=== PATIENT | female | born 1950 | race Caucasian/White ===

== ENCOUNTER 2021-11-01 01:32 | Inpatient (IN) ==
[2021-11-01] MEDS ORDERED: ALUM/MAG/SIMETH/LIDO VISC 1:1 30 ML BOTTLE PO STA (01:48)
[2021-11-01] MEDS ORDERED: ONDANSETRON 4 MG/2 ML VIAL IV STA (01:48)
[2021-11-01] MEDS ORDERED: PANTOPRAZOLE 40 MG VIAL IV STA (01:48)
[2021-11-01 02:50] LABS: Basophils % 0.2 % (0.0-0.8); Hematocrit 29.3 VOL% (35.7-47.0); Hemoglobin 9.8 GM/DL (12.0-16.0); Immature Granulocytes % 1.4 %; Immature Granulocytes Absolute 0.08 #; Lymphocytes # 1.6 10*3/uL (1.4-4.0); Lymphocytes % 27.9 % (21.3-54.2); Mean Corpuscular HGB Conc 33.4 GM/DL (32-36); Mean Corpuscular Volume 95.1 FL (87-102); Mean Platelet Volume 11.1 FL (9.6-12.0); Monocytes % 4.1 % (1.7-12.7); NRBC # 0.02 10*3/uL; Neutrophils % 66.4 % (38.7-73.9); Platelet Count 168 T/CUMM (130-400); Red Blood Count 3.08 MC/CUMM (3.8-5.5); Red Cell Distribution Width 14.2 % (9.3-17.3); White Blood Count 5.7 T/CUMM (4-12)
[2021-11-01] MEDS ORDERED: LACTATED RINGERS 1,000 ML IV ONE (03:02)
[2021-11-01 03:10] LABS: Burr Cells 2+; Ovalocytes 1+; Platelet Estimate Normal
[2021-11-01 03:11] LABS: Albumin 2.5 G/DL (3.4-5.0); Bilirubin,Total 0.4 MG/DL (0.20-1.00); Calcium 8.8 MG/DL (8.5-10.1); Osmolality,Calculated 290.4 MOS/KG (273-304); Total Protein 6.3 G/DL (6.4-8.2)
[2021-11-01 03:21] LABS: Potassium 8.3 MMOL/L (3.5-5.1)
[2021-11-01] MEDS ORDERED: SODIUM CHLORIDE 0.9% 1,000 ML IV STA (03:22)
[2021-11-01] MEDS ORDERED: INSULIN REGULAR 10 UNIT, CALCIUM GLUCONATE 1,000 MG in DEXTROSE 10% 250 ML IV ONE (03:22)
[2021-11-01] MEDS ORDERED: SODIUM POLYSTYRENE SULFATE 15 GM/60 ML BOTTLE PO STA (03:28)
[2021-11-01] MEDS ORDERED: SODIUM BICARBONATE 50 MEQ/50 ML VIAL IV STA (03:28)
[2021-11-01 03:54] LABS: ABG Base Excess -16.5 MMOL/L (-2.5-2.5); ABG HCO3 12.3 MMOL/L (20-26); ABG PCO2 25.8 MM HG (35-48); ABG PH 7.213 (7.35-7.45); ABG PO2 72.6 MM HG (80-95); ABG TCO2 9.3 MMOL/L (23-27)
[2021-11-01 03:57] LABS: Bacteria,Urine Occasional /HPF (Few); Bilirubin,Urine Negative (Negative); Blood, Urine Large mg/dL (Negative); Glucose,Urine (UA) 50 mg/dL (Negative); Ketones,Urine Negative (Negative); Mucus,Urine Occasional /LPF (Occasional); Nitrite,Urine Negative (Negative); Protein,Urine 100 MG/DL; RBC,Urine 6 /HPF (0-4); Squamous Epithelial Cell,Urine Occasional /HPF (0-10); Urine Appearance CLOUDY (Clear); Urine Color Amber (Yellow); Urine Specific Gravity 1.019 (1.001-1.035); Urine Urobilinogen < 2.0 EU/DL (<2.0)
[2021-11-01] MEDS ORDERED: cefTRIAXone 1,000 MG in SODIUM CHLORIDE 0.9% 100 ML IV STA (04:04)
[2021-11-01] MEDS ORDERED: NOREPINEPHRINE 4 MG/4 ML VIAL IV ONE (04:11)
[2021-11-01] MEDS ORDERED: DEXTROSE 50% 25 GM/50 ML SYRINGE IV ONE (04:23)
[2021-11-01] MEDS ORDERED: SODIUM BICARBONATE 50 MEQ/50 ML SYRINGE IV ONE (04:25)
[2021-11-01] MEDS: NOREPINEPHRINE 8 MG in SODIUM CHLORIDE 0.9% 242 ML IV PRN ×3 (04:30→18:16)
[2021-11-01] MEDS ORDERED: ceFAZolin 1,000 MG VIAL ONE (04:34)
[2021-11-01] MEDS ORDERED: SODIUM POLYSTYRENE SULFATE 15 GM/60 ML BOTTLE RECTAL STA (04:36)
[2021-11-01] MEDS ORDERED: ONDANSETRON 4 MG/2 ML VIAL ONE (04:47)
[2021-11-01] MEDS ORDERED: propofoL 200 MG/20 ML VIAL IV ONE (04:47)
[2021-11-01] MEDS ORDERED: ROCURONIUM 50 MG/5 ML VIAL IV ONE ×2 (04:47→13:20)
[2021-11-01] MEDS ORDERED: SUCCINYLCHOLINE 200 MG/10 ML VIAL ONE (04:47)
[2021-11-01] MEDS ORDERED: LIDOCAINE 2% 5 ML VIAL ONE (04:47)
[2021-11-01] MEDS ORDERED: fentaNYL 100 MCG/2 ML VIAL ONE (04:47)
[2021-11-01] MEDS ORDERED: MIDAZOLAM 2 MG/2 ML VIAL ONE ×4 (04:48→13:18)
[2021-11-01] MEDS ORDERED: KETAMINE 500 MG/10 ML VIAL ONE ×2 (04:50→11:25)
[2021-11-01] MEDS ORDERED: cefOXitin 1,000 MG in SODIUM CHLORIDE 0.9% 100 ML IV STA (05:02)
[2021-11-01 05:11] LABS: Hepatitis B Core IgM Quant 0.19 Index; Hepatitis B Surface Ag Quant < 0.10 Index; Hepatitis B Surface Ag Result Non-Reactive (NonReactive); Hepatitis C Virus Ab Quant 0.04 Index; Hepatitis C Virus Ab Result Non-Reactive (NonReactive)
[2021-11-01] MEDS ORDERED: ETOMIDATE 20 MG/10 ML VIAL IV ONE (05:40)
[2021-11-01] MEDS ORDERED: VECURONIUM 10 MG VIAL IV ONE (05:40)
[2021-11-01] MEDS ORDERED: ALBUTEROL 2.5 MG/3 ML NEB RESP TX PRN (05:42)
[2021-11-01] MEDS ORDERED: ONDANSETRON 4 MG/2 ML VIAL IV PRN (05:42)
[2021-11-01] MEDS ORDERED: HEPARIN LOCK FLUSH 500 UNIT/5 ML SYRINGE IV ONE ×2 (05:42→05:47)
[2021-11-01] MEDS ORDERED: SODIUM BICARB INJ 100 MEQ in DEXTROSE 5% 1,000 ML IV SCH (06:00)
[2021-11-01 06:57] LABS: INR 1.2; PT Patient Result 12.8 SECS (10.5-12.0)
[2021-11-01 07:05] LABS: Calcium 8.1 MG/DL (8.5-10.1); Osmolality,Calculated 302.2 MOS/KG (273-304)
[2021-11-01 07:10] LABS: ABG Base Excess -16.8 MMOL/L (-2.5-2.5); ABG HCO3 7.5 MMOL/L (20-26); ABG Oxygen Saturation 98.7 % (95-100); ABG PH 7.295 (7.35-7.45); ABG PO2 268.8 MM HG (80-95); ABG TCO2 7.9 MMOL/L (23-27)
[2021-11-01 07:19] LABS: ABG PCO2 15.7 MM HG (35-48)
[2021-11-01 07:33] LABS: Potassium 6.7 MMOL/L (3.5-5.1)
[2021-11-01] MEDS ORDERED: DEXTROSE 10% 25 GM/250 ML BAG IV PRN (07:41)
[2021-11-01] MEDS ORDERED: GLUCAGON 1 MG VIAL IM PRN (07:41)
[2021-11-01] MEDS: SODIUM BICARB INJ 150 MEQ in DEXTROSE 5% 1,000 ML IV SCH ×3 (08:44→20:17)
[2021-11-01] MEDS ORDERED: ATROPINE 1 MG/10 ML SYRINGE ONE (09:47)
[2021-11-01] MEDS ORDERED: HEPARIN 10,000 UNIT/10 ML VIAL IV PRN (10:55)
[2021-11-01] MEDS ORDERED: fentaNYL 250 MCG/5 ML VIAL ONE (11:25)
[2021-11-01] MEDS ORDERED: GLYCOPYRROLATE 0.4 MG/2 ML VIAL ONE (11:25)
[2021-11-01] MEDS ORDERED: MIDAZOLAM 10 MG/2 ML VIAL ONE (11:26)
[2021-11-01] MEDS ORDERED: PHENYLEPHRINE DRIP 20 MG/250 ML PREMIX IV ONE (11:27)
[2021-11-01] MEDS ORDERED: HEPARIN/NACL 0.9% 2 UNITS/ML 1,000 UNIT/500 ML BAG IV ONE (11:37)
[2021-11-01 12:44] LABS: Osmolality,Calculated 290.5 MOS/KG (273-304); Potassium 4.5 MMOL/L (3.5-5.1)
[2021-11-01 13:11] LABS: ABG Base Excess -9.5 MMOL/L (-2.5-2.5); ABG HCO3 16.8 MMOL/L (20-26); ABG Oxygen Saturation 98.9 % (95-100); ABG PCO2 43.3 MM HG (35-48); ABG PH 7.223 (7.35-7.45); ABG TCO2 16.8 MMOL/L (23-27); Glucose Heart Surgery 256 MG/DL (74-106); Hematocrit Heart Surgery 27.8 PERCENT (37-47); Potassium Heart/CVR 4.2 MMOL/L (3.5-5.1)
[2021-11-01] MEDS ORDERED: SEVOFLURANE 1 UNIT/15 MINUTE INH ONE (13:18)
[2021-11-01] MEDS ORDERED: SODIUM CHLORIDE 0.9% 2,000 ML IV ONE (13:18)
[2021-11-01] MEDS ORDERED: SODIUM BICARBONATE 50 MEQ/50 ML VIAL IV ONE ×2 (13:44→13:47)
[2021-11-01] MEDS ORDERED: SODIUM CHLORIDE 0.9% 100 ML IV ONE (13:53)
[2021-11-01 13:59] LABS: ABG Base Excess -2.9 MMOL/L (-2.5-2.5); ABG Oxygen Saturation 99.7 % (95-100); ABG PCO2 29.7 MM HG (35-48); ABG PH 7.446 (7.35-7.45); ABG TCO2 19.1 MMOL/L (23-27)
[2021-11-01 14:03] LABS: Hematocrit 21.9 VOL% (35.7-47.0); Hemoglobin 7.7 GM/DL (12.0-16.0); Immature Granulocytes % 1.4 %; Immature Granulocytes Absolute 0.11 #; Lymphocytes # 1.9 10*3/uL (1.4-4.0); Lymphocytes % 23.6 % (21.3-54.2); Mean Corpuscular HGB Conc 35.2 GM/DL (32-36); Mean Corpuscular Volume 89.4 FL (87-102); Mean Platelet Volume 10.2 FL (9.6-12.0); Monocytes % 5.3 % (1.7-12.7); NRBC # 0.03 10*3/uL; Neutrophils % 69.7 % (38.7-73.9); Platelet Count 125 T/CUMM (130-400); Red Blood Count 2.45 MC/CUMM (3.8-5.5); Red Cell Distribution Width 13.8 % (9.3-17.3); White Blood Count 8.1 T/CUMM (4-12)
[2021-11-01] MEDS: PIPERACILLIN/TAZOBACTAM 3,375 MG in SODIUM CHLORIDE 0.9% 100 ML IV SCH ×2 (14:07→22:04)
[2021-11-01] MEDS: INSULIN LISPRO 100 UNIT/ML SUBCUT SCH ×2 (14:11→18:20)
[2021-11-01] MEDS: SODIUM CHLORIDE 0.9% 1,000 ML IV SCH ×2 (14:12→23:25)
[2021-11-01 14:24] LABS: Bilirubin,Total 0.4 MG/DL (0.20-1.00); Calcium 7.1 MG/DL (8.5-10.1); Osmolality,Calculated 301.5 MOS/KG (273-304); Potassium 4.1 MMOL/L (3.5-5.1); Total Protein 4.4 G/DL (6.4-8.2)
[2021-11-01] MEDS ORDERED: SODIUM BICARB INJ 150 MEQ in DEXTROSE 5% 1,000 ML IV SCH (14:30)
[2021-11-01] MEDS ORDERED: SODIUM CHLORIDE 0.9% 1,000 ML IV PRN (14:32)
[2021-11-01] MEDS ORDERED: INFLUENZA VIRUS VACCINE 0.5 ML SYRINGE IM ONE (17:51)
[2021-11-01 21:35] LABS: ABG Base Excess -5.6 MMOL/L (-2.5-2.5); ABG Oxygen Saturation 98.7 % (95-100); ABG PH 7.578 (7.35-7.45); ABG PO2 224.6 MM HG (80-95); ABG TCO2 14.4 MMOL/L (23-27)
[2021-11-01 21:37] LABS: ABG PCO2 15.3 MM HG (35-48)
[2021-11-01 23:08] LABS: ABG Base Excess -5.5 MMOL/L (-2.5-2.5); ABG HCO3 15.1 MMOL/L (20-26); ABG Oxygen Saturation 98.5 % (95-100); ABG PH 7.524 (7.35-7.45); ABG PO2 192.5 MM HG (80-95); ABG TCO2 15.7 MMOL/L (23-27)
[2021-11-01 23:10] LABS: ABG PCO2 18.8 MM HG (35-48)
[2021-11-01 23:45] LABS: Hematocrit 30.7 VOL% (35.7-47.0); Hemoglobin 10.9 GM/DL (12.0-16.0)
[2021-11-02] MEDS: INSULIN LISPRO 100 UNIT/ML SUBCUT SCH ×5 (00:10→23:45)
[2021-11-02 01:44] LABS: ABG Base Excess -4.3 MMOL/L (-2.5-2.5); ABG HCO3 17.6 MMOL/L (20-26); ABG Oxygen Saturation 98.2 % (95-100); ABG PH 7.484 (7.35-7.45); ABG PO2 146.7 MM HG (80-95); ABG TCO2 18.4 MMOL/L (23-27)
[2021-11-02] MEDS: NOREPINEPHRINE 8 MG in SODIUM CHLORIDE 0.9% 242 ML IV PRN ×4 (02:32→18:45)
[2021-11-02 04:40] LABS: ABG Base Excess -0.9 MMOL/L (-2.5-2.5); ABG HCO3 23.7 MMOL/L (20-26); ABG PCO2 29.5 MM HG (35-48); ABG PH 7.474 (7.35-7.45); ABG TCO2 19.1 MMOL/L (23-27)
[2021-11-02 04:50] LABS: Hematocrit 33.1 VOL% (35.7-47.0); Hemoglobin 11.5 GM/DL (12.0-16.0); Immature Granulocytes % 0.5 %; Immature Granulocytes Absolute 0.03 #; Lymphocytes # 0.9 10*3/uL (1.4-4.0); Lymphocytes % 13.5 % (21.3-54.2); Mean Corpuscular HGB Conc 34.7 GM/DL (32-36); Mean Corpuscular Volume 87.6 FL (87-102); Monocytes % 2.4 % (1.7-12.7); NRBC # 0.02 10*3/uL; Neutrophils % 83.6 % (38.7-73.9); Platelet Count 130 T/CUMM (130-400); Red Blood Count 3.78 MC/CUMM (3.8-5.5); Red Cell Distribution Width 14.3 % (9.3-17.3); White Blood Count 6.6 T/CUMM (4-12)
[2021-11-02 05:11] LABS: Band Neutrophils 3 % (0-10); Hypochromia Slight; Lymphocytes 10 % (20-55); Microcytosis Slight; Platelet Estimate Normal; Segmented Neutrophils 85 % (50-85); Total Cells Counted 100
[2021-11-02 05:14] LABS: Albumin 2.1 G/DL (3.4-5.0); Bilirubin,Total 0.5 MG/DL (0.20-1.00); Osmolality,Calculated 298.5 MOS/KG (273-304); Potassium 4.2 MMOL/L (3.5-5.1); Total Protein 4.8 G/DL (6.4-8.2)
[2021-11-02] MEDS: SODIUM CHLORIDE 0.9% 1,000 ML IV SCH ×3 (05:30→16:54)
[2021-11-02] MEDS: SODIUM BICARB INJ 150 MEQ in DEXTROSE 5% 1,000 ML IV SCH (05:43)
[2021-11-02] MEDS: PANTOPRAZOLE 40 MG VIAL IV SCH (08:06)
[2021-11-02] MEDS: PIPERACILLIN/TAZOBACTAM 3,375 MG in SODIUM CHLORIDE 0.9% 100 ML IV SCH ×2 (10:50→22:48)
[2021-11-02] MEDS: MORPHINE 2 MG/1 ML SYRINGE IV PRN (11:50)
[2021-11-02] MEDS: DESITIN 4OZ/NYSTATIN 15 GRAM MIXTURE PASTE TOP SCH ×2 (16:53→20:21)
[2021-11-03] MEDS: SODIUM CHLORIDE 0.9% 1,000 ML IV SCH ×4 (02:46→23:59)
[2021-11-03 04:21] LABS: ABG Base Excess -0.3 MMOL/L (-2.5-2.5); ABG HCO3 22.4 MMOL/L (20-26); ABG PCO2 30.2 MM HG (35-48); ABG PH 7.488 (7.35-7.45); ABG PO2 124.1 MM HG (80-95); ABG TCO2 23.3 MMOL/L (23-27)
[2021-11-03] MEDS: NOREPINEPHRINE 8 MG in SODIUM CHLORIDE 0.9% 242 ML IV PRN (04:39)
[2021-11-03 04:45] LABS: Albumin 1.6 G/DL (3.4-5.0); Bilirubin,Total 0.7 MG/DL (0.20-1.00); Calcium 7.4 MG/DL (8.5-10.1); Osmolality,Calculated 291.8 MOS/KG (273-304); Potassium 4.6 MMOL/L (3.5-5.1); Total Protein 4.5 G/DL (6.4-8.2)
[2021-11-03 04:47] LABS: Basophils % 0.1 % (0.0-0.8); Eosinophils % 0.2 % (0.00-10.9); Hematocrit 30.5 VOL% (35.7-47.0); Hemoglobin 10.5 GM/DL (12.0-16.0); Immature Granulocytes % 0.6 %; Immature Granulocytes Absolute 0.05 #; Lymphocytes # 1.3 10*3/uL (1.4-4.0); Lymphocytes % 15.3 % (21.3-54.2); Mean Corpuscular HGB Conc 34.4 GM/DL (32-36); Mean Corpuscular Volume 89.7 FL (87-102); Mean Platelet Volume 11.1 FL (9.6-12.0); Monocytes % 3.2 % (1.7-12.7); Neutrophils % 80.6 % (38.7-73.9); Red Cell Distribution Width 14.6 % (9.3-17.3); White Blood Count 8.3 T/CUMM (4-12)
[2021-11-03 04:53] LABS: Platelet Count 88 T/CUMM (130-400)
[2021-11-03 05:04] LABS: Hypochromia 1+; Microcytosis 1+; Platelet Estimate Decreased
[2021-11-03] MEDS: INSULIN LISPRO 100 UNIT/ML SUBCUT SCH ×4 (05:56→23:40)
[2021-11-03] MEDS: PIPERACILLIN/TAZOBACTAM 3,375 MG in SODIUM CHLORIDE 0.9% 100 ML IV SCH ×2 (09:17→22:14)
[2021-11-03] MEDS: PANTOPRAZOLE 40 MG VIAL IV SCH (09:17)
[2021-11-03 10:55] LABS: Basophils % 0.1 % (0.0-0.8); Eosinophils % 0.2 % (0.00-10.9); Hematocrit 27.7 VOL% (35.7-47.0); Hemoglobin 9.4 GM/DL (12.0-16.0); Immature Granulocytes % 0.7 %; Immature Granulocytes Absolute 0.06 #; Lymphocytes # 1.1 10*3/uL (1.4-4.0); Lymphocytes % 13.8 % (21.3-54.2); Mean Corpuscular HGB Conc 33.9 GM/DL (32-36); Mean Corpuscular Volume 91.1 FL (87-102); Mean Platelet Volume 10.6 FL (9.6-12.0); Monocytes % 3.2 % (1.7-12.7); Platelet Count 73 T/CUMM (130-400); Red Blood Count 3.04 MC/CUMM (3.8-5.5); Red Cell Distribution Width 14.7 % (9.3-17.3); White Blood Count 8.1 T/CUMM (4-12)
[2021-11-03] MEDS ORDERED: MAGNESIUM SULF RIDER 4 GM/100 ML PREMIX IV ONE ×2 (10:58→11:00)
[2021-11-03] MEDS ORDERED: DOPamine 800 MG/250 ML PREMIX IV PRN (11:17)
[2021-11-03] MEDS: DOPamine 800 MG/250 ML PREMIX IV PRN (11:29)
[2021-11-03] MEDS: DESITIN 4OZ/NYSTATIN 15 GRAM MIXTURE PASTE TOP SCH ×2 (14:03→21:10)
[2021-11-03] MEDS: DEXAMETHASONE 4 MG/1 ML VIAL IV SCH (17:17)
[2021-11-03] MEDS: MORPHINE 2 MG/1 ML SYRINGE IV PRN (21:20)
[2021-11-04 03:59] LABS: ABG Base Excess -1.8 MMOL/L (-2.5-2.5); ABG HCO3 22.8 MMOL/L (20-26); ABG Oxygen Saturation 96.3 % (95-100); ABG PCO2 31.7 MM HG (35-48); ABG PH 7.439 (7.35-7.45); ABG PO2 80.8 MM HG (80-95); ABG TCO2 19.2 MMOL/L (23-27)
[2021-11-04 04:11] LABS: Hemoglobin 10.8 GM/DL (12.0-16.0); Immature Granulocytes % 0.8 %; Immature Granulocytes Absolute 0.07 #; Lymphocytes # 0.8 10*3/uL (1.4-4.0); Lymphocytes % 9.2 % (21.3-54.2); Mean Corpuscular HGB Conc 33.8 GM/DL (32-36); Mean Corpuscular Volume 91.2 FL (87-102); Mean Platelet Volume 11.3 FL (9.6-12.0); Monocytes % 1.8 % (1.7-12.7); Neutrophils % 88.2 % (38.7-73.9); Platelet Count 72 T/CUMM (130-400); Red Blood Count 3.51 MC/CUMM (3.8-5.5); Red Cell Distribution Width 14.6 % (9.3-17.3); White Blood Count 8.5 T/CUMM (4-12)
[2021-11-04 04:32] LABS: Albumin 1.6 G/DL (3.4-5.0); Bilirubin,Total 0.8 MG/DL (0.20-1.00); Calcium 7.9 MG/DL (8.5-10.1); Osmolality,Calculated 295.1 MOS/KG (273-304); Potassium 4.7 MMOL/L (3.5-5.1)
[2021-11-04 04:47] LABS: Hypochromia 1+; Microcytosis 1+; Ovalocytes Slight; Platelet Estimate Decreased
[2021-11-04] MEDS: DOPamine 800 MG/250 ML PREMIX IV PRN (04:54)
[2021-11-04] MEDS: INSULIN LISPRO 100 UNIT/ML SUBCUT SCH ×3 (05:18→19:01)
[2021-11-04] MEDS: DEXAMETHASONE 4 MG/1 ML VIAL IV SCH (08:41)
[2021-11-04] MEDS: PANTOPRAZOLE 40 MG VIAL IV SCH (08:41)
[2021-11-04] MEDS: PIPERACILLIN/TAZOBACTAM 3,375 MG in SODIUM CHLORIDE 0.9% 100 ML IV SCH ×2 (09:08→21:09)
[2021-11-04] MEDS: DESITIN 4OZ/NYSTATIN 15 GRAM MIXTURE PASTE TOP SCH ×2 (09:46→20:04)
[2021-11-04] MEDS: SODIUM CHLORIDE 0.9% 1,000 ML IV SCH (18:17)
[2021-11-04] MEDS: GABAPENTIN 100 MG CAPSULE PO SCH (20:04)
[2021-11-04] MEDS: ASCORBIC ACID 500 MG TABLET PO SCH (20:04)
[2021-11-04] MEDS: MORPHINE 2 MG/1 ML SYRINGE IV PRN (20:10)
[2021-11-05] MEDS: INSULIN LISPRO 100 UNIT/ML SUBCUT SCH ×5 (00:12→23:40)
[2021-11-05 03:32] LABS: ABG Base Excess -3.1 MMOL/L (-2.5-2.5); ABG HCO3 21.8 MMOL/L (20-26); ABG Oxygen Saturation 96.1 % (95-100); ABG PCO2 34.6 MM HG (35-48); ABG PH 7.395 (7.35-7.45); ABG PO2 84.4 MM HG (80-95); ABG TCO2 19.3 MMOL/L (23-27)
[2021-11-05 03:33] LABS: Hematocrit 29.3 VOL% (35.7-47.0); Hemoglobin 9.7 GM/DL (12.0-16.0); Immature Granulocytes % 0.8 %; Immature Granulocytes Absolute 0.09 #; Lymphocytes # 0.8 10*3/uL (1.4-4.0); Lymphocytes % 7.8 % (21.3-54.2); Mean Corpuscular HGB Conc 33.1 GM/DL (32-36); Mean Platelet Volume 10.9 FL (9.6-12.0); Neutrophils % 88.4 % (38.7-73.9); Platelet Count 86 T/CUMM (130-400); Red Blood Count 3.15 MC/CUMM (3.8-5.5); Red Cell Distribution Width 14.7 % (9.3-17.3); White Blood Count 10.8 T/CUMM (4-12)
[2021-11-05 03:57] LABS: Alanine Aminotransferase 152 U/L (13-56); Albumin 1.1 G/DL (3.4-5.0); Alkaline Phosphatase 95 U/L (45-117); Aspartate Amino Transferase 259 U/L (0-37); Bilirubin,Total < 0.39 MG/DL (0.20-1.00); Blood Urea Nitrogen 69 MG/DL (7-18); Calcium 8.3 MG/DL (8.5-10.1); Carbon Dioxide 22 MMOL/L (21-32); Estimated Glom Filtration Rate 7 ML/MIN; Glucose 200 MG/DL (74-106); Osmolality,Calculated 304.4 MOS/KG (273-304); Potassium 4.5 MMOL/L (3.5-5.1); Sodium 140 MMOL/L (136-145); Total Protein 4.7 G/DL (6.4-8.2)
[2021-11-05] MEDS: MORPHINE 2 MG/1 ML SYRINGE IV PRN ×2 (04:00→12:32)
[2021-11-05 04:06] LABS: Hypochromia 1+; Microcytosis 1+; Ovalocytes Slight
[2021-11-05 04:07] LABS: Platelet Estimate Decreased; Tear Drop Cells Slight
[2021-11-05] MEDS: SODIUM CHLORIDE 0.9% 1,000 ML IV SCH (04:52)
[2021-11-05] MEDS: ZINC GLUCONATE 50 MG TABLET PO SCH (08:00)
[2021-11-05] MEDS: ASPIRIN EC 81 MG TABLET PO SCH (08:00)
[2021-11-05] MEDS: CHOLECALCIFEROL 1,000 UNIT TABLET PO SCH (08:00)
[2021-11-05] MEDS: ASCORBIC ACID 500 MG TABLET PO SCH ×2 (08:00→20:25)
[2021-11-05] MEDS: PANTOPRAZOLE 40 MG VIAL IV SCH (08:01)
[2021-11-05] MEDS: DESITIN 4OZ/NYSTATIN 15 GRAM MIXTURE PASTE TOP SCH ×2 (08:01→21:21)
[2021-11-05] MEDS: CETIRIZINE 10 MG TABLET PO SCH (08:01)
[2021-11-05] MEDS: DEXAMETHASONE 4 MG/1 ML VIAL IV SCH (08:01)
[2021-11-05 08:50] LABS: Allen Test Positive; Pt O2 Delivery Device Ventilator
[2021-11-05 08:51] LABS: ABG Base Excess -3.3 MMOL/L (-2.5-2.5); ABG HCO3 21.6 MMOL/L (20-26); ABG PCO2 36.8 MM HG (35-48); ABG PH 7.373 (7.35-7.45); ABG PO2 79.4 MM HG (80-95); ABG TCO2 19.4 MMOL/L (23-27)
[2021-11-05] MEDS: PIPERACILLIN/TAZOBACTAM 3,375 MG in SODIUM CHLORIDE 0.9% 100 ML IV SCH ×2 (10:30→22:01)
[2021-11-05] MEDS ORDERED: HEPARIN 5,000 UNIT/1 ML VIAL IV ONE (12:18)
[2021-11-05] MEDS ORDERED: HEPARIN DRIP 25,000 UNITS/500 ML PREMIX IV SCH (12:30)
[2021-11-05 13:48] LABS: Basophils % 0.1 % (0.0-0.8); Hematocrit 28.4 VOL% (35.7-47.0); Hemoglobin 9.5 GM/DL (12.0-16.0); Immature Granulocytes % 0.9 %; Lymphocytes # 0.7 10*3/uL (1.4-4.0); Lymphocytes % 6.4 % (21.3-54.2); Mean Corpuscular HGB Conc 33.5 GM/DL (32-36); Mean Corpuscular Volume 93.1 FL (87-102); Mean Platelet Volume 11.2 FL (9.6-12.0); Monocytes % 2.6 % (1.7-12.7); Platelet Count 81 T/CUMM (130-400); Red Blood Count 3.05 MC/CUMM (3.8-5.5); Red Cell Distribution Width 14.7 % (9.3-17.3); White Blood Count 11.3 T/CUMM (4-12)
[2021-11-05 14:14] LABS: Platelet Estimate Adequate; Segmented Neutrophils 96 % (50-85); Total Cells Counted 100
[2021-11-05 14:15] LABS: Burr Cells Few; Ovalocytes Few; Polychromasia Slight; Schistocytes Few
[2021-11-05 18:18] LABS: Basophils % 0.1 % (0.0-0.8); Hematocrit 32.9 VOL% (35.7-47.0); Hemoglobin 11.2 GM/DL (12.0-16.0); Immature Granulocytes % 0.8 %; Immature Granulocytes Absolute 0.16 #; Lymphocytes # 1.1 10*3/uL (1.4-4.0); Mean Corpuscular Volume 89.6 FL (87-102); Mean Platelet Volume 10.9 FL (9.6-12.0); Monocytes % 3.2 % (1.7-12.7); Neutrophils % 89.9 % (38.7-73.9); Platelet Count 103 T/CUMM (130-400); Red Blood Count 3.67 MC/CUMM (3.8-5.5); Red Cell Distribution Width 14.6 % (9.3-17.3)
[2021-11-05 19:24] LABS: Burr Cells Few; Platelet Estimate Adequate; Polychromasia Slight; Target Cells Few
[2021-11-05] MEDS: GABAPENTIN 100 MG CAPSULE PO SCH (20:24)
[2021-11-06 01:02] LABS: Basophils % 0.1 % (0.0-0.8); Hematocrit 29.9 VOL% (35.7-47.0); Hemoglobin 10.2 GM/DL (12.0-16.0); Immature Granulocytes % 1.2 %; Immature Granulocytes Absolute 0.17 #; Lymphocytes # 0.6 10*3/uL (1.4-4.0); Lymphocytes % 4.6 % (21.3-54.2); Mean Corpuscular HGB Conc 34.1 GM/DL (32-36); Mean Corpuscular Volume 91.4 FL (87-102); Mean Platelet Volume 10.7 FL (9.6-12.0); Monocytes % 3.4 % (1.7-12.7); Neutrophils % 90.7 % (38.7-73.9); Platelet Count 98 T/CUMM (130-400); Red Blood Count 3.27 MC/CUMM (3.8-5.5); Red Cell Distribution Width 14.5 % (9.3-17.3)
[2021-11-06 01:23] LABS: Lymphocytes 7 % (20-55); Platelet Estimate Decreased; Segmented Neutrophils 90 % (50-85); Total Cells Counted 100
[2021-11-06 04:21] LABS: Basophils % 0.1 % (0.0-0.8); Hematocrit 29.4 VOL% (35.7-47.0); Hemoglobin 9.8 GM/DL (12.0-16.0); Immature Granulocytes % 0.6 %; Immature Granulocytes Absolute 0.08 #; Lymphocytes # 0.8 10*3/uL (1.4-4.0); Mean Corpuscular HGB Conc 33.3 GM/DL (32-36); Mean Platelet Volume 11.3 FL (9.6-12.0); Monocytes % 4.1 % (1.7-12.7); Neutrophils % 89.2 % (38.7-73.9); Platelet Count 89 T/CUMM (130-400); Red Blood Count 3.23 MC/CUMM (3.8-5.5); Red Cell Distribution Width 14.3 % (9.3-17.3); White Blood Count 13.6 T/CUMM (4-12)
[2021-11-06 05:05] LABS: Albumin 1.4 G/DL (3.4-5.0); Bilirubin,Total 0.5 MG/DL (0.20-1.00); Osmolality,Calculated 296.4 MOS/KG (273-304); Potassium 4.1 MMOL/L (3.5-5.1); Total Protein 4.7 G/DL (6.4-8.2)
[2021-11-06] MEDS: INSULIN LISPRO 100 UNIT/ML SUBCUT SCH ×4 (05:55→23:55)
[2021-11-06] MEDS: DOPamine 800 MG/250 ML PREMIX IV PRN ×2 (06:56→19:12)
[2021-11-06] MEDS ORDERED: SODIUM CHLORIDE 0.9% 500 ML IV ONE (08:25)
[2021-11-06] MEDS: ASPIRIN EC 81 MG TABLET PO SCH (09:00)
[2021-11-06] MEDS: ASCORBIC ACID 500 MG TABLET PO SCH ×2 (09:00→20:04)
[2021-11-06] MEDS: ZINC GLUCONATE 50 MG TABLET PO SCH (09:00)
[2021-11-06] MEDS: CHOLECALCIFEROL 1,000 UNIT TABLET PO SCH (09:00)
[2021-11-06] MEDS: CETIRIZINE 10 MG TABLET PO SCH (09:00)
[2021-11-06] MEDS: DEXAMETHASONE 4 MG/1 ML VIAL IV SCH (09:01)
[2021-11-06] MEDS: PANTOPRAZOLE 40 MG VIAL IV SCH (09:02)
[2021-11-06 09:28] LABS: ABG Base Excess -0.9 MMOL/L (-2.5-2.5); ABG HCO3 23.6 MMOL/L (20-26); ABG Oxygen Saturation 93.4 % (95-100); ABG PCO2 35.6 MM HG (35-48); ABG PH 7.422 (7.35-7.45); ABG PO2 69.4 MM HG (80-95); ABG TCO2 21.3 MMOL/L (23-27)
[2021-11-06] MEDS: PIPERACILLIN/TAZOBACTAM 3,375 MG in SODIUM CHLORIDE 0.9% 100 ML IV SCH (10:20)
[2021-11-06 12:29] LABS: Basophils % 0.1 % (0.0-0.8); Hematocrit 27.8 VOL% (35.7-47.0); Hemoglobin 9.1 GM/DL (12.0-16.0); Immature Granulocytes % 0.9 %; Immature Granulocytes Absolute 0.14 #; Lymphocytes % 6.1 % (21.3-54.2); Mean Corpuscular HGB Conc 32.7 GM/DL (32-36); Mean Corpuscular Volume 94.2 FL (87-102); Mean Platelet Volume 11.3 FL (9.6-12.0); Monocytes % 3.1 % (1.7-12.7); Neutrophils % 89.8 % (38.7-73.9); Platelet Count 102 T/CUMM (130-400); Red Blood Count 2.95 MC/CUMM (3.8-5.5); Red Cell Distribution Width 14.6 % (9.3-17.3); White Blood Count 15.9 T/CUMM (4-12)
[2021-11-06] MEDS: DESITIN 4OZ/NYSTATIN 15 GRAM MIXTURE PASTE TOP SCH ×2 (12:37→20:06)
[2021-11-06] MEDS: SODIUM CHLORIDE 0.9% 1,000 ML IV SCH (12:37)
[2021-11-06 12:50] LABS: INR 1.1; PT Patient Result 12.2 SECS (10.5-12.0)
[2021-11-06 12:55] LABS: Partial Thromboplastin Time 26.5 SECS (23.8-32.1)
[2021-11-06 13:01] LABS: Anisocytosis 1+; Ovalocytes Few; Platelet Estimate Adequate
[2021-11-06 13:03] LABS: Macrocytosis Slight
[2021-11-06 18:26] LABS: Basophils % 0.1 % (0.0-0.8); Hematocrit 27.9 VOL% (35.7-47.0); Hemoglobin 9.3 GM/DL (12.0-16.0); Immature Granulocytes % 0.9 %; Immature Granulocytes Absolute 0.16 #; Lymphocytes # 1.1 10*3/uL (1.4-4.0); Mean Corpuscular HGB Conc 33.3 GM/DL (32-36); Mean Corpuscular Volume 93.3 FL (87-102); Mean Platelet Volume 11.5 FL (9.6-12.0); Monocytes % 2.9 % (1.7-12.7); NRBC # 0.06 10*3/uL; Neutrophils % 90.1 % (38.7-73.9); Platelet Count 105 T/CUMM (130-400); Red Blood Count 2.99 MC/CUMM (3.8-5.5); Red Cell Distribution Width 14.6 % (9.3-17.3)
[2021-11-06 18:33] LABS: ABG Base Excess -3.7 MMOL/L (-2.5-2.5); ABG Oxygen Saturation 95.5 % (95-100); ABG PCO2 31.3 MM HG (35-48); ABG PH 7.424 (7.35-7.45); ABG PO2 88.2 MM HG (80-95)
[2021-11-06] MEDS: GABAPENTIN 100 MG CAPSULE PO SCH (20:04)
[2021-11-07] MEDS: DOPamine 800 MG/250 ML PREMIX IV PRN (05:00)
[2021-11-07] MEDS: INSULIN LISPRO 100 UNIT/ML SUBCUT SCH ×3 (05:47→19:11)
[2021-11-07 07:30] LABS: Basophils % 0.1 % (0.0-0.8); Hematocrit 25.8 VOL% (35.7-47.0); Hemoglobin 8.5 GM/DL (12.0-16.0); Immature Granulocytes % 0.9 %; Immature Granulocytes Absolute 0.16 #; Lymphocytes # 1.4 10*3/uL (1.4-4.0); Lymphocytes % 8.2 % (21.3-54.2); Mean Corpuscular HGB Conc 32.9 GM/DL (32-36); Mean Corpuscular Volume 93.1 FL (87-102); Mean Platelet Volume 11.6 FL (9.6-12.0); Monocytes % 4.9 % (1.7-12.7); NRBC # 0.07 10*3/uL; Neutrophils % 85.9 % (38.7-73.9); Platelet Count 105 T/CUMM (130-400); Red Blood Count 2.77 MC/CUMM (3.8-5.5); Red Cell Distribution Width 14.6 % (9.3-17.3); White Blood Count 17.4 T/CUMM (4-12)
[2021-11-07 07:39] LABS: Albumin 1.7 G/DL (3.4-5.0); Bilirubin,Total 0.5 MG/DL (0.20-1.00); Calcium 8.4 MG/DL (8.5-10.1); Potassium 4.9 MMOL/L (3.5-5.1); Total Protein 5.3 G/DL (6.4-8.2)
[2021-11-07 08:13] LABS: ABG Base Excess -3.6 MMOL/L (-2.5-2.5); ABG HCO3 20.2 MMOL/L (20-26); ABG PCO2 31.7 MM HG (35-48); ABG PH 7.422 (7.35-7.45); ABG PO2 69.6 MM HG (80-95); ABG TCO2 21.2 MMOL/L (23-27)
[2021-11-07 08:57] LABS: Anisocytosis 1+; Platelet Estimate Adequate
[2021-11-07 08:58] LABS: Burr Cells Few; Ovalocytes Few; Tear Drop Cells Few
[2021-11-07] MEDS: ASCORBIC ACID 500 MG TABLET PO SCH ×2 (09:20→20:06)
[2021-11-07] MEDS: CHOLECALCIFEROL 1,000 UNIT TABLET PO SCH (09:20)
[2021-11-07] MEDS: CETIRIZINE 10 MG TABLET PO SCH (09:21)
[2021-11-07] MEDS: DESITIN 4OZ/NYSTATIN 15 GRAM MIXTURE PASTE TOP SCH ×2 (09:21→20:07)
[2021-11-07] MEDS: ASPIRIN EC 81 MG TABLET PO SCH (09:21)
[2021-11-07] MEDS: ZINC GLUCONATE 50 MG TABLET PO SCH (09:21)
[2021-11-07] MEDS: PANTOPRAZOLE 40 MG VIAL IV SCH (09:21)
[2021-11-07] MEDS: DEXAMETHASONE 4 MG/1 ML VIAL IV SCH (09:21)
[2021-11-07 20:33] LABS: Basophils % 0.1 % (0.0-0.8); Hematocrit 21.9 VOL% (35.7-47.0); Hemoglobin 7.3 GM/DL (12.0-16.0); Immature Granulocytes % 1.1 %; Immature Granulocytes Absolute 0.19 #; Lymphocytes # 1.2 10*3/uL (1.4-4.0); Lymphocytes % 7.1 % (21.3-54.2); Mean Corpuscular HGB Conc 33.3 GM/DL (32-36); Mean Corpuscular Volume 92.4 FL (87-102); Mean Platelet Volume 11.6 FL (9.6-12.0); Monocytes % 3.5 % (1.7-12.7); NRBC # 0.03 10*3/uL; Neutrophils % 88.2 % (38.7-73.9); Platelet Count 108 T/CUMM (130-400); Red Blood Count 2.37 MC/CUMM (3.8-5.5); Red Cell Distribution Width 14.7 % (9.3-17.3); White Blood Count 17.2 T/CUMM (4-12)
[2021-11-08] MEDS: INSULIN LISPRO 100 UNIT/ML SUBCUT SCH ×5 (00:11→23:10)
[2021-11-08 05:55] LABS: ABG Base Excess -5.7 MMOL/L (-2.5-2.5); ABG Oxygen Saturation 93.8 % (95-100); ABG PCO2 33.7 MM HG (35-48); ABG PH 7.369 (7.35-7.45); ABG PO2 76.5 MM HG (80-95)
[2021-11-08 06:04] LABS: Basophils % 0.1 % (0.0-0.8); Hematocrit 20.9 VOL% (35.7-47.0); Hemoglobin 7.1 GM/DL (12.0-16.0); Immature Granulocytes % 1.4 %; Immature Granulocytes Absolute 0.29 #; Lymphocytes # 1.3 10*3/uL (1.4-4.0); Lymphocytes % 6.5 % (21.3-54.2); Mean Corpuscular Volume 92.5 FL (87-102); Mean Platelet Volume 11.4 FL (9.6-12.0); Monocytes % 5.3 % (1.7-12.7); NRBC # 0.03 10*3/uL; Neutrophils % 86.7 % (38.7-73.9); Platelet Count 115 T/CUMM (130-400); Red Blood Count 2.26 MC/CUMM (3.8-5.5); Red Cell Distribution Width 14.6 % (9.3-17.3); White Blood Count 20.5 T/CUMM (4-12)
[2021-11-08 06:29] LABS: Lymphocytes 6 % (20-55); Segmented Neutrophils 89 % (50-85); Total Cells Counted 100
[2021-11-08 06:30] LABS: Microcytosis 1+; Ovalocytes Slight
[2021-11-08 06:31] LABS: Hypochromia Slight; Platelet Estimate Adequate
[2021-11-08 06:36] LABS: Albumin 1.6 G/DL (3.4-5.0); Bilirubin,Total 0.4 MG/DL (0.20-1.00); Calcium 8.4 MG/DL (8.5-10.1); Potassium 4.9 MMOL/L (3.5-5.1); Total Protein 4.9 G/DL (6.4-8.2)
[2021-11-08] MEDS ORDERED: SODIUM CHLORIDE 0.9% 1,000 ML IV PRN ×2 (08:28→09:32)
[2021-11-08] MEDS: ZINC GLUCONATE 50 MG TABLET PO SCH (09:25)
[2021-11-08] MEDS: ASCORBIC ACID 500 MG TABLET PO SCH ×2 (09:25→20:11)
[2021-11-08] MEDS: ASPIRIN EC 81 MG TABLET PO SCH (09:25)
[2021-11-08] MEDS: DEXAMETHASONE 4 MG/1 ML VIAL IV SCH (09:26)
[2021-11-08] MEDS: CETIRIZINE 10 MG TABLET PO SCH (09:26)
[2021-11-08] MEDS: PANTOPRAZOLE 40 MG VIAL IV SCH (09:26)
[2021-11-08] MEDS: CHOLECALCIFEROL 1,000 UNIT TABLET PO SCH (09:26)
[2021-11-08] MEDS: DESITIN 4OZ/NYSTATIN 15 GRAM MIXTURE PASTE TOP SCH ×2 (09:42→20:11)
[2021-11-08] MEDS: DOPamine 800 MG/250 ML PREMIX IV PRN (13:25)
[2021-11-08] MEDS: MORPHINE 2 MG/1 ML SYRINGE IV PRN ×2 (16:39→20:27)
[2021-11-09] MEDS: DOPamine 800 MG/250 ML PREMIX IV PRN ×2 (01:45→11:46)
[2021-11-09] MEDS: MORPHINE 2 MG/1 ML SYRINGE IV PRN (03:35)
[2021-11-09 04:18] LABS: ABG Base Excess -2.9 MMOL/L (-2.5-2.5); ABG HCO3 21.9 MMOL/L (20-26); ABG Oxygen Saturation 88.8 % (95-100); ABG PCO2 35.4 MM HG (35-48); ABG PH 7.392 (7.35-7.45); ABG PO2 59.5 MM HG (80-95)
[2021-11-09 04:19] LABS: Allen Test Positive; Pt O2 Delivery Device Other
[2021-11-09 04:40] LABS: Basophils % 0.1 % (0.0-0.8); Hemoglobin 8.5 GM/DL (12.0-16.0); Immature Granulocytes % 1.8 %; Immature Granulocytes Absolute 0.38 #; Lymphocytes # 1.3 10*3/uL (1.4-4.0); Lymphocytes % 6.1 % (21.3-54.2); Mean Corpuscular HGB Conc 32.7 GM/DL (32-36); Mean Corpuscular Volume 93.2 FL (87-102); Mean Platelet Volume 12.3 FL (9.6-12.0); Monocytes % 6.2 % (1.7-12.7); NRBC # 0.05 10*3/uL; Neutrophils % 85.8 % (38.7-73.9); Platelet Count 141 T/CUMM (130-400); Red Blood Count 2.79 MC/CUMM (3.8-5.5); White Blood Count 21.1 T/CUMM (4-12)
[2021-11-09 05:05] LABS: Hypochromia 1+; Lymphocytes 10 % (20-55); Microcytosis 1+; Platelet Estimate Adequate; Segmented Neutrophils 86 % (50-85); Total Cells Counted 100
[2021-11-09] MEDS: INSULIN LISPRO 100 UNIT/ML SUBCUT SCH ×3 (05:15→17:30)
[2021-11-09 05:22] LABS: Albumin 1.6 G/DL (3.4-5.0); Bilirubin,Total 0.9 MG/DL (0.20-1.00); Potassium 4.8 MMOL/L (3.5-5.1); Total Protein 4.8 G/DL (6.4-8.2)
[2021-11-09] MEDS: ASCORBIC ACID 500 MG TABLET PO SCH ×2 (09:05→20:26)
[2021-11-09] MEDS: ZINC GLUCONATE 50 MG TABLET PO SCH (09:05)
[2021-11-09] MEDS: CETIRIZINE 10 MG TABLET PO SCH (09:05)
[2021-11-09] MEDS: PANTOPRAZOLE 40 MG VIAL IV SCH (09:05)
[2021-11-09] MEDS: ASPIRIN EC 81 MG TABLET PO SCH (09:05)
[2021-11-09] MEDS: CHOLECALCIFEROL 1,000 UNIT TABLET PO SCH (09:05)
[2021-11-09] MEDS: DEXAMETHASONE 4 MG/1 ML VIAL IV SCH (09:06)
[2021-11-09] MEDS: DESITIN 4OZ/NYSTATIN 15 GRAM MIXTURE PASTE TOP SCH ×2 (09:26→21:03)
[2021-11-09] MEDS: ALBUMIN 25% 12.5 GM/50 ML VIAL IV SCH ×2 (11:08→17:30)
[2021-11-09] MEDS ORDERED: DEXTROSE 10% 1,000 ML IV PRN (17:00)
[2021-11-09] MEDS: FAT EMULSION 20% 250 ML IV SCH (17:13)
[2021-11-09] MEDS: MULTIVITAMIN IV SCH (17:13)
[2021-11-09] MEDS: COPPER IV SCH (17:13)
[2021-11-09] MEDS: ZINC IV SCH (17:13)
[2021-11-09] MEDS: [UNRECOGNIZED DRUG - OTHER] IV SCH (17:13)
[2021-11-09] MEDS: MANGANESE IV SCH (17:13)
[2021-11-09] MEDS: SELENIUM IV SCH (17:13)
[2021-11-10] MEDS: INSULIN LISPRO 100 UNIT/ML SUBCUT SCH ×4 (01:05→18:00)
[2021-11-10] MEDS: ALBUMIN 25% 12.5 GM/50 ML VIAL IV SCH ×3 (03:10→18:00)
[2021-11-10] MEDS: DOPamine 800 MG/250 ML PREMIX IV PRN ×2 (03:45→18:01)
[2021-11-10 04:28] LABS: ABG Base Excess -6.2 MMOL/L (-2.5-2.5); ABG HCO3 18.2 MMOL/L (20-26); ABG Oxygen Saturation 95.1 % (95-100); ABG PCO2 30.8 MM HG (35-48); ABG PH 7.389 (7.35-7.45); ABG PO2 83.3 MM HG (80-95); ABG TCO2 19.1 MMOL/L (23-27)
[2021-11-10 04:43] LABS: Albumin 1.8 G/DL (3.4-5.0); Bilirubin,Total 0.5 MG/DL (0.20-1.00); Calcium 8.3 MG/DL (8.5-10.1); Osmolality,Calculated 303.7 MOS/KG (273-304); Potassium 4.4 MMOL/L (3.5-5.1); Total Protein 4.6 G/DL (6.4-8.2)
[2021-11-10 05:37] LABS: Eosinophils % 0.1 % (0.00-10.9); Hematocrit 18.3 VOL% (35.7-47.0); Immature Granulocytes % 1.9 %; Immature Granulocytes Absolute 0.29 #; Lymphocytes # 0.9 10*3/uL (1.4-4.0); Mean Corpuscular HGB Conc 32.8 GM/DL (32-36); Mean Corpuscular Volume 92.9 FL (87-102); Mean Platelet Volume 11.8 FL (9.6-12.0); Monocytes % 6.1 % (1.7-12.7); NRBC # 0.04 10*3/uL; Neutrophils % 85.9 % (38.7-73.9); Platelet Count 133 T/CUMM (130-400); Red Blood Count 1.97 MC/CUMM (3.8-5.5); Red Cell Distribution Width 15.1 % (9.3-17.3); White Blood Count 15.5 T/CUMM (4-12)
[2021-11-10] MEDS: CHOLECALCIFEROL 1,000 UNIT TABLET PO SCH (08:37)
[2021-11-10] MEDS: PANTOPRAZOLE 40 MG VIAL IV SCH (08:38)
[2021-11-10] MEDS: ZINC GLUCONATE 50 MG TABLET PO SCH (08:38)
[2021-11-10] MEDS: ASCORBIC ACID 500 MG TABLET PO SCH ×2 (08:38→20:03)
[2021-11-10] MEDS: DEXAMETHASONE 4 MG/1 ML VIAL IV SCH (08:38)
[2021-11-10] MEDS: ASPIRIN EC 81 MG TABLET PO SCH (08:38)
[2021-11-10] MEDS: CETIRIZINE 10 MG TABLET PO SCH (08:39)
[2021-11-10] MEDS: DESITIN 4OZ/NYSTATIN 15 GRAM MIXTURE PASTE TOP SCH ×2 (08:39→20:03)
[2021-11-10] MEDS: MANGANESE IV SCH (14:59)
[2021-11-10] MEDS: COPPER IV SCH (14:59)
[2021-11-10] MEDS: [UNRECOGNIZED DRUG - OTHER] IV SCH (14:59)
[2021-11-10] MEDS: MULTIVITAMIN IV SCH (14:59)
[2021-11-10] MEDS: SELENIUM IV SCH (14:59)
[2021-11-10] MEDS: ZINC IV SCH (14:59)
[2021-11-10] MEDS: FAT EMULSION 20% 250 ML IV SCH (15:00)
[2021-11-10 16:45] LABS: Hemoglobin 9.7 GM/DL (12.0-16.0)
[2021-11-11] MEDS: INSULIN LISPRO 100 UNIT/ML SUBCUT SCH ×5 (00:41→23:46)
[2021-11-11] MEDS: ALBUMIN 25% 12.5 GM/50 ML VIAL IV SCH ×3 (03:40→18:02)
[2021-11-11 05:06] LABS: Eosinophils % 0.2 % (0.00-10.9); Hematocrit 23.7 VOL% (35.7-47.0); Hemoglobin 8.2 GM/DL (12.0-16.0); Immature Granulocytes % 1.5 %; Immature Granulocytes Absolute 0.14 #; Lymphocytes # 0.5 10*3/uL (1.4-4.0); Lymphocytes % 5.8 % (21.3-54.2); Mean Corpuscular HGB Conc 34.6 GM/DL (32-36); Mean Corpuscular Volume 89.4 FL (87-102); Mean Platelet Volume 11.8 FL (9.6-12.0); Monocytes % 5.9 % (1.7-12.7); NRBC # 0.02 10*3/uL; Neutrophils % 86.6 % (38.7-73.9); Platelet Count 109 T/CUMM (130-400); Red Blood Count 2.65 MC/CUMM (3.8-5.5); Red Cell Distribution Width 13.7 % (9.3-17.3); White Blood Count 9.2 T/CUMM (4-12)
[2021-11-11] MEDS: PANTOPRAZOLE 40 MG VIAL IV SCH (08:17)
[2021-11-11] MEDS: ASPIRIN EC 81 MG TABLET PO SCH (08:18)
[2021-11-11] MEDS: ASCORBIC ACID 500 MG TABLET PO SCH ×2 (08:18→21:02)
[2021-11-11] MEDS: DEXAMETHASONE 4 MG/1 ML VIAL IV SCH (08:18)
[2021-11-11] MEDS: DESITIN 4OZ/NYSTATIN 15 GRAM MIXTURE PASTE TOP SCH ×2 (08:18→21:02)
[2021-11-11] MEDS: ZINC GLUCONATE 50 MG TABLET PO SCH (08:18)
[2021-11-11] MEDS: CHOLECALCIFEROL 1,000 UNIT TABLET PO SCH (08:18)
[2021-11-11] MEDS: CETIRIZINE 10 MG TABLET PO SCH (08:18)
[2021-11-11 09:35] LABS: Bilirubin,Total 0.5 MG/DL (0.20-1.00); Calcium 8.1 MG/DL (8.5-10.1); Osmolality,Calculated 295.2 MOS/KG (273-304); Potassium 3.6 MMOL/L (3.5-5.1); Total Protein 4.4 G/DL (6.4-8.2)
[2021-11-11] MEDS: [UNRECOGNIZED DRUG - OTHER] IV SCH (09:57)
[2021-11-11] MEDS: MANGANESE IV SCH (09:57)
[2021-11-11] MEDS: ZINC IV SCH (09:57)
[2021-11-11] MEDS: COPPER IV SCH (09:57)
[2021-11-11] MEDS: SELENIUM IV SCH (09:57)
[2021-11-11] MEDS: MULTIVITAMIN IV SCH (09:57)
[2021-11-11] MEDS: FAT EMULSION 20% 250 ML IV SCH (13:17)
[2021-11-11] MEDS: MELATONIN 3 MG TABLET PO PRN ×2 (21:02→21:16)
[2021-11-12] MEDS: ALBUMIN 25% 12.5 GM/50 ML VIAL IV SCH ×3 (02:26→18:05)
[2021-11-12 03:53] LABS: Hematocrit 21.6 VOL% (35.7-47.0); Hemoglobin 7.2 GM/DL (12.0-16.0); Immature Granulocytes % 1.4 %; Immature Granulocytes Absolute 0.09 #; Lymphocytes # 0.3 10*3/uL (1.4-4.0); Lymphocytes % 4.9 % (21.3-54.2); Mean Corpuscular HGB Conc 33.3 GM/DL (32-36); Mean Corpuscular Volume 91.9 FL (87-102); Mean Platelet Volume 11.9 FL (9.6-12.0); Monocytes % 4.7 % (1.7-12.7); Red Blood Count 2.35 MC/CUMM (3.8-5.5); Red Cell Distribution Width 14.2 % (9.3-17.3); White Blood Count 6.5 T/CUMM (4-12)
[2021-11-12 03:56] LABS: Platelet Count 91 T/CUMM (130-400)
[2021-11-12 04:16] LABS: Calcium 7.9 MG/DL (8.5-10.1); Osmolality,Calculated 294.7 MOS/KG (273-304)
[2021-11-12 04:31] LABS: Hypochromia 2+; Lymphocytes 3 % (20-55); Microcytosis 1+; Platelet Estimate Decreased; Segmented Neutrophils 95 % (50-85); Total Cells Counted 100
[2021-11-12] MEDS: INSULIN LISPRO 100 UNIT/ML SUBCUT SCH ×3 (05:51→18:31)
[2021-11-12] MEDS: COPPER IV SCH (06:32)
[2021-11-12] MEDS: SELENIUM IV SCH (06:32)
[2021-11-12] MEDS: MANGANESE IV SCH (06:32)
[2021-11-12] MEDS: [UNRECOGNIZED DRUG - OTHER] IV SCH (06:32)
[2021-11-12] MEDS: ZINC IV SCH (06:32)
[2021-11-12] MEDS: MULTIVITAMIN IV SCH (06:32)
[2021-11-12] MEDS: ASCORBIC ACID 500 MG TABLET PO SCH ×2 (08:45→20:20)
[2021-11-12] MEDS: ASPIRIN EC 81 MG TABLET PO SCH (08:45)
[2021-11-12] MEDS: CETIRIZINE 10 MG TABLET PO SCH (08:45)
[2021-11-12] MEDS: ZINC GLUCONATE 50 MG TABLET PO SCH (08:45)
[2021-11-12] MEDS: DEXAMETHASONE 4 MG/1 ML VIAL IV SCH (08:45)
[2021-11-12] MEDS: CHOLECALCIFEROL 1,000 UNIT TABLET PO SCH (08:45)
[2021-11-12] MEDS: DESITIN 4OZ/NYSTATIN 15 GRAM MIXTURE PASTE TOP SCH ×2 (08:46→21:30)
[2021-11-12] MEDS: PANTOPRAZOLE 40 MG VIAL IV SCH (08:46)
[2021-11-12] MEDS: FAT EMULSION 20% 250 ML IV SCH (14:15)
[2021-11-12] MEDS ORDERED: ACETAMINOPHEN 500 MG TABLET PO ONE (19:21)
[2021-11-12] MEDS: MELATONIN 3 MG TABLET PO PRN (20:20)
[2021-11-12 20:21] LABS: ABG Base Excess -0.6 MMOL/L (-2.5-2.5); ABG HCO3 23.9 MMOL/L (20-26); ABG Oxygen Saturation 93.7 % (95-100); ABG PCO2 26.2 MM HG (35-48); ABG PH 7.519 (7.35-7.45); ABG PO2 62.8 MM HG (80-95); ABG TCO2 19.5 MMOL/L (23-27)
[2021-11-12] MEDS: ESCITALOPRAM 10 MG TABLET PO SCH (21:57)
[2021-11-12] MEDS: INSULIN GLARGINE 100 UNIT/ML SUBCUT SCH (21:58)
[2021-11-12] MEDS ORDERED: ACETAMINOPHEN 325 MG TABLET PO PRN (23:40)
[2021-11-13] MEDS: INSULIN LISPRO 100 UNIT/ML SUBCUT SCH ×4 (00:23→18:15)
[2021-11-13] MEDS: [UNRECOGNIZED DRUG - OTHER] IV SCH ×2 (01:30→21:40)
[2021-11-13] MEDS: MANGANESE IV SCH ×2 (01:30→21:40)
[2021-11-13] MEDS: SELENIUM IV SCH ×2 (01:30→21:40)
[2021-11-13] MEDS: MULTIVITAMIN IV SCH ×2 (01:30→21:40)
[2021-11-13] MEDS: ZINC IV SCH ×2 (01:30→21:40)
[2021-11-13] MEDS: COPPER IV SCH ×2 (01:30→21:40)
[2021-11-13] MEDS: ALBUMIN 25% 12.5 GM/50 ML VIAL IV SCH ×3 (02:30→18:16)
[2021-11-13] MEDS: MORPHINE 4 MG/1 ML VIAL IV PRN ×3 (02:54→22:01)
[2021-11-13 03:47] LABS: ABG Base Excess -2.2 MMOL/L (-2.5-2.5); ABG HCO3 22.5 MMOL/L (20-26); ABG Oxygen Saturation 95.8 % (95-100); ABG PCO2 35.5 MM HG (35-48); ABG PH 7.402 (7.35-7.45); ABG PO2 78.2 MM HG (80-95); ABG TCO2 20.5 MMOL/L (23-27)
[2021-11-13 03:54] LABS: Hematocrit 26.2 VOL% (35.7-47.0); Hemoglobin 8.6 GM/DL (12.0-16.0); Immature Granulocytes % 0.7 %; Immature Granulocytes Absolute 0.03 #; Lymphocytes # 0.1 10*3/uL (1.4-4.0); Lymphocytes % 2.5 % (21.3-54.2); Mean Corpuscular HGB Conc 32.8 GM/DL (32-36); Mean Corpuscular Volume 91.9 FL (87-102); Mean Platelet Volume 11.6 FL (9.6-12.0); Monocytes % 2.1 % (1.7-12.7); Neutrophils % 94.7 % (38.7-73.9); Platelet Count 85 T/CUMM (130-400); Red Blood Count 2.85 MC/CUMM (3.8-5.5); Red Cell Distribution Width 14.8 % (9.3-17.3); White Blood Count 4.4 T/CUMM (4-12)
[2021-11-13 04:14] LABS: Calcium 7.9 MG/DL (8.5-10.1); Osmolality,Calculated 292.2 MOS/KG (273-304); Potassium 3.4 MMOL/L (3.5-5.1)
[2021-11-13 04:45] LABS: Band Neutrophils 3 % (0-10); Hypochromia Slight; Lymphocytes 4 % (20-55); Microcytosis 1+; Ovalocytes Slight; Segmented Neutrophils 85 % (50-85); Total Cells Counted 100
[2021-11-13] MEDS ORDERED: ETOMIDATE 20 MG/10 ML VIAL IV ONE ×2 (09:04→09:23)
[2021-11-13] MEDS ORDERED: SUCCINYLCHOLINE 200 MG/10 ML VIAL ONE (09:04)
[2021-11-13] MEDS ORDERED: SUCCINYLCHOLINE 200 MG/10 ML VIAL IV ONE (09:24)
[2021-11-13] MEDS: MIDAZOLAM 100 MG in SODIUM CHLORIDE 0.9% 80 ML IV PRN (09:38)
[2021-11-13] MEDS ORDERED: MIDAZOLAM 2 MG/2 ML VIAL IV ONE (10:00)
[2021-11-13] MEDS ORDERED: MIDAZOLAM 2 MG/2 ML VIAL ONE ×2 (10:01→15:51)
[2021-11-13 10:18] LABS: ABG Base Excess -5.2 MMOL/L (-2.5-2.5); ABG HCO3 20.1 MMOL/L (20-26); ABG Oxygen Saturation 96.8 % (95-100); ABG PCO2 49.7 MM HG (35-48); ABG PH 7.256 (7.35-7.45); ABG TCO2 20.5 MMOL/L (23-27); Allen Test Positive; Pt O2 Delivery Device Ventilator
[2021-11-13] MEDS: ZINC GLUCONATE 50 MG TABLET PO SCH (11:19)
[2021-11-13] MEDS: CHOLECALCIFEROL 1,000 UNIT TABLET PO SCH (11:19)
[2021-11-13] MEDS: ASCORBIC ACID 500 MG TABLET PO SCH ×2 (11:19→23:49)
[2021-11-13] MEDS: DESITIN 4OZ/NYSTATIN 15 GRAM MIXTURE PASTE TOP SCH ×2 (11:19→23:49)
[2021-11-13] MEDS: CETIRIZINE 10 MG TABLET PO SCH (11:20)
[2021-11-13] MEDS: ASPIRIN EC 81 MG TABLET PO SCH (11:20)
[2021-11-13] MEDS ORDERED: NOREPINEPHRINE 16 MG in SODIUM CHLORIDE 0.9% 234 ML IV PRN (11:25)
[2021-11-13] MEDS ORDERED: NOREPINEPHRINE 4 MG/4 ML VIAL IV ONE (11:30)
[2021-11-13] MEDS: PANTOPRAZOLE 40 MG VIAL IV SCH (11:36)
[2021-11-13] MEDS: CLINDAMYCIN INJ 600 MG/50 ML PREMIX IV SCH ×3 (11:36→20:52)
[2021-11-13] MEDS: LEVOFLOXACIN INJ 750 MG/150 ML PREMIX IV SCH (11:37)
[2021-11-13] MEDS: DOPamine 800 MG/250 ML PREMIX IV PRN (11:50)
[2021-11-13] MEDS ORDERED: SODIUM CHLORIDE 0.9% 1,000 ML IV ONE (12:30)
[2021-11-13] MEDS: FAT EMULSION 20% 250 ML IV SCH (15:14)
[2021-11-13] MEDS ORDERED: ROCURONIUM 50 MG/5 ML VIAL IV ONE (15:51)
[2021-11-13] MEDS ORDERED: SEVOFLURANE 1 UNIT/15 MINUTE INH ONE (15:51)
[2021-11-13] MEDS ORDERED: fentaNYL 100 MCG/2 ML VIAL ONE (16:30)
[2021-11-13] MEDS: INSULIN GLARGINE 100 UNIT/ML SUBCUT SCH (20:53)
[2021-11-13] MEDS: ESCITALOPRAM 10 MG TABLET PO SCH (23:48)
[2021-11-14] MEDS: INSULIN LISPRO 100 UNIT/ML SUBCUT SCH ×4 (00:35→17:24)
[2021-11-14] MEDS ORDERED: PHENYLEPHRINE DRIP 40 MG/250 ML PREMIX IV ONE (01:56)
[2021-11-14] MEDS: PHENYLEPHRINE DRIP 40 MG/250 ML PREMIX IV PRN ×2 (02:10→07:54)
[2021-11-14] MEDS: ALBUMIN 25% 12.5 GM/50 ML VIAL IV SCH ×3 (02:17→17:49)
[2021-11-14] MEDS: CLINDAMYCIN INJ 600 MG/50 ML PREMIX IV SCH (03:15)
[2021-11-14 03:39] LABS: ABG Base Excess -8.7 MMOL/L (-2.5-2.5); ABG HCO3 17.4 MMOL/L (20-26); ABG Oxygen Saturation 97.6 % (95-100); ABG PCO2 48.9 MM HG (35-48)
[2021-11-14 03:43] LABS: ABG PH 7.205 (7.35-7.45)
[2021-11-14 04:04] LABS: Albumin 2.3 G/DL (3.4-5.0); Calcium 7.5 MG/DL (8.5-10.1); Osmolality,Calculated 291.8 MOS/KG (273-304); Potassium 3.5 MMOL/L (3.5-5.1); Total Protein 5.1 G/DL (6.4-8.2)
[2021-11-14 04:13] LABS: Eosinophils # 0.3 10*3/uL (0.0-0.87); Eosinophils % 3.8 % (0.00-10.9); Hematocrit 28.6 VOL% (35.7-47.0); Hemoglobin 9.6 GM/DL (12.0-16.0); Immature Granulocytes % 1.2 %; Immature Granulocytes Absolute 0.08 #; Lymphocytes # 0.4 10*3/uL (1.4-4.0); Mean Corpuscular HGB Conc 33.6 GM/DL (32-36); Mean Corpuscular Volume 92.3 FL (87-102); Mean Platelet Volume 13.7 FL (9.6-12.0); Monocytes % 7.1 % (1.7-12.7); Neutrophils % 81.9 % (38.7-73.9); Red Cell Distribution Width 15.8 % (9.3-17.3)
[2021-11-14 04:15] LABS: Platelet Count 75 T/CUMM (130-400); White Blood Count 6.9 T/CUMM (4-12)
[2021-11-14 04:35] LABS: Band Neutrophils 5 % (0-10); Burr Cells Slight; Eosinophils 5 % (0-10); Lymphocytes 3 % (20-55); Microcytosis 1+; Segmented Neutrophils 81 % (50-85); Total Cells Counted 100
[2021-11-14 04:36] LABS: Platelet Estimate Decreased; Polychromasia Slight
[2021-11-14] MEDS: MORPHINE 4 MG/1 ML VIAL IV PRN ×2 (06:05→20:09)
[2021-11-14] MEDS: MIDAZOLAM 100 MG in SODIUM CHLORIDE 0.9% 80 ML IV PRN (06:15)
[2021-11-14] MEDS: DOPamine 800 MG/250 ML PREMIX IV PRN ×2 (06:15→22:38)
[2021-11-14] MEDS ORDERED: MAGNESIUM SULF RIDER 2 GM/50 ML PREMIX IV ONE (08:40)
[2021-11-14] MEDS: SODIUM BICARBONATE 650 MG TABLET PO SCH ×2 (09:09→09:39)
[2021-11-14] MEDS: ASCORBIC ACID 500 MG TABLET PO SCH ×2 (09:10→09:39)
[2021-11-14] MEDS: CETIRIZINE 10 MG TABLET PO SCH ×2 (09:10→09:39)
[2021-11-14] MEDS: CHOLECALCIFEROL 1,000 UNIT TABLET PO SCH ×2 (09:10→09:39)
[2021-11-14] MEDS: ZINC GLUCONATE 50 MG TABLET PO SCH ×2 (09:10→09:39)
[2021-11-14] MEDS: PANTOPRAZOLE 40 MG VIAL IV SCH (09:10)
[2021-11-14] MEDS: ASPIRIN EC 81 MG TABLET PO SCH ×2 (09:10→09:38)
[2021-11-14] MEDS: DESITIN 4OZ/NYSTATIN 15 GRAM MIXTURE PASTE TOP SCH ×2 (09:10→21:59)
[2021-11-14] MEDS ORDERED: SODIUM BICARBONATE 50 MEQ/50 ML VIAL IV ONE (09:40)
[2021-11-14] MEDS: MEROPENEM 500 MG in SODIUM CHLORIDE 0.9% 100 ML IV SCH ×2 (09:53→20:09)
[2021-11-14] MEDS: PHENYLEPHRINE INJ 160 MG in SODIUM CHLORIDE 0.9% 234 ML IV PRN (13:00)
[2021-11-14] MEDS: FAT EMULSION 20% 250 ML IV SCH (15:37)
[2021-11-14] MEDS: ZINC IV SCH (17:37)
[2021-11-14] MEDS: [UNRECOGNIZED DRUG - OTHER] IV SCH (17:37)
[2021-11-14] MEDS: MANGANESE IV SCH (17:37)
[2021-11-14] MEDS: COPPER IV SCH (17:37)
[2021-11-14] MEDS: MULTIVITAMIN IV SCH (17:37)
[2021-11-14] MEDS: SELENIUM IV SCH (17:37)
[2021-11-15] MEDS: INSULIN GLARGINE 100 UNIT/ML SUBCUT SCH ×2 (01:18→22:37)
[2021-11-15] MEDS: INSULIN LISPRO 100 UNIT/ML SUBCUT SCH ×4 (01:19→19:53)
[2021-11-15] MEDS: ALBUMIN 25% 12.5 GM/50 ML VIAL IV SCH ×2 (02:12→11:45)
[2021-11-15] MEDS: PHENYLEPHRINE INJ 160 MG in SODIUM CHLORIDE 0.9% 234 ML IV PRN ×3 (04:20→20:32)
[2021-11-15 04:50] LABS: Basophils % 0.1 % (0.0-0.8); Eosinophils # 0.6 10*3/uL (0.0-0.87); Eosinophils % 6.8 % (0.00-10.9); Hematocrit 24.8 VOL% (35.7-47.0); Hemoglobin 8.2 GM/DL (12.0-16.0); Immature Granulocytes % 6.4 %; Immature Granulocytes Absolute 0.52 #; Lymphocytes # 0.6 10*3/uL (1.4-4.0); Lymphocytes % 7.9 % (21.3-54.2); Mean Corpuscular HGB Conc 33.1 GM/DL (32-36); Mean Corpuscular Volume 92.2 FL (87-102); Mean Platelet Volume 13.3 FL (9.6-12.0); NRBC # 0.02 10*3/uL; Neutrophils % 70.8 % (38.7-73.9); Red Blood Count 2.69 MC/CUMM (3.8-5.5); Red Cell Distribution Width 15.9 % (9.3-17.3); White Blood Count 8.1 T/CUMM (4-12)
[2021-11-15 04:55] LABS: Platelet Count 75 T/CUMM (130-400)
[2021-11-15 04:56] LABS: Bilirubin,Total 2.7 MG/DL (0.20-1.00); Calcium 7.2 MG/DL (8.5-10.1); Osmolality,Calculated 293.5 MOS/KG (273-304); Potassium 3.2 MMOL/L (3.5-5.1); Total Protein 4.8 G/DL (6.4-8.2)
[2021-11-15 05:27] LABS: Band Neutrophils 7 % (0-10); Eosinophils 1 % (0-10); Lymphocytes 9 % (20-55); Segmented Neutrophils 80 % (50-85); Total Cells Counted 100
[2021-11-15 05:28] LABS: Acanthocytes Few; Microcytosis 1+; Ovalocytes Slight; Platelet Estimate Decreased
[2021-11-15 06:50] LABS: ABG Base Excess -8.8 MMOL/L (-2.5-2.5); ABG HCO3 17.3 MMOL/L (20-26); ABG Oxygen Saturation 96.9 % (95-100); ABG PO2 99.6 MM HG (80-95)
[2021-11-15 06:53] LABS: ABG PH 7.205 (7.35-7.45)
[2021-11-15] MEDS: MIDAZOLAM 100 MG in SODIUM CHLORIDE 0.9% 80 ML IV PRN (10:07)
[2021-11-15] MEDS: PANTOPRAZOLE 40 MG VIAL IV SCH (10:08)
[2021-11-15] MEDS: MEROPENEM 500 MG in SODIUM CHLORIDE 0.9% 100 ML IV SCH ×2 (10:10→22:37)
[2021-11-15] MEDS: DESITIN 4OZ/NYSTATIN 15 GRAM MIXTURE PASTE TOP SCH ×2 (10:11→22:38)
[2021-11-15] MEDS: LEVOFLOXACIN INJ 750 MG/150 ML PREMIX IV SCH (10:30)
[2021-11-15] MEDS: DOPamine 800 MG/250 ML PREMIX IV PRN (11:54)
[2021-11-15] MEDS: FAT EMULSION 20% 250 ML IV SCH (15:00)
[2021-11-15] MEDS: MICAFUNGIN 100 MG in SODIUM CHLORIDE 0.9% 100 ML IV SCH (15:30)
[2021-11-15] MEDS: HYDROCORTISONE 100 MG VIAL IV SCH ×2 (15:30→22:37)
[2021-11-15] MEDS ORDERED: ELECTROLYTE IV SCH (17:00)
[2021-11-15] MEDS: INSULIN REGULAR IV SCH (17:00)
[2021-11-15] MEDS ORDERED: MULTIVITAMIN IV SCH (17:00)
[2021-11-15] MEDS: [UNRECOGNIZED DRUG - OTHER] IV SCH (17:00)
[2021-11-15] MEDS: MULTIVITAMIN IV SCH ×2 (17:00→19:55)
[2021-11-15] MEDS ORDERED: [UNRECOGNIZED DRUG - OTHER] IV SCH (17:00)
[2021-11-15] MEDS ORDERED: INSULIN REGULAR IV SCH (17:00)
[2021-11-15] MEDS: [UNRECOGNIZED DRUG - OTHER] IV SCH (19:55)
[2021-11-15] MEDS: ZINC IV SCH (19:55)
[2021-11-15] MEDS: COPPER IV SCH (19:55)
[2021-11-15] MEDS: SELENIUM IV SCH (19:55)
[2021-11-15] MEDS: MANGANESE IV SCH (19:55)
[2021-11-16] MEDS: DOPamine 800 MG/250 ML PREMIX IV PRN ×2 (00:20→13:00)
[2021-11-16] MEDS: INSULIN LISPRO 100 UNIT/ML SUBCUT SCH ×4 (00:50→19:06)
[2021-11-16 04:04] LABS: Basophils % 0.1 % (0.0-0.8); Hematocrit 26.2 VOL% (35.7-47.0); Hemoglobin 8.7 GM/DL (12.0-16.0); Immature Granulocytes Absolute 0.35 #; Lymphocytes # 0.2 10*3/uL (1.4-4.0); Lymphocytes % 3.4 % (21.3-54.2); Mean Corpuscular HGB Conc 33.2 GM/DL (32-36); Mean Corpuscular Volume 91.6 FL (87-102); Mean Platelet Volume 13.5 FL (9.6-12.0); Monocytes % 7.8 % (1.7-12.7); NRBC # 0.03 10*3/uL; Neutrophils % 83.7 % (38.7-73.9); Platelet Count 64 T/CUMM (130-400); Red Blood Count 2.86 MC/CUMM (3.8-5.5); Red Cell Distribution Width 15.8 % (9.3-17.3); White Blood Count 7.1 T/CUMM (4-12)
[2021-11-16 04:21] LABS: Bilirubin,Total 3.7 MG/DL (0.20-1.00); Calcium 8.3 MG/DL (8.5-10.1); Osmolality,Calculated 283.1 MOS/KG (273-304); Potassium 3.6 MMOL/L (3.5-5.1)
[2021-11-16 04:24] LABS: Band Neutrophils 1 % (0-10); Hypochromia 1+; Lymphocytes 9 % (20-55); Microcytosis 1+; Platelet Estimate Decreased; Segmented Neutrophils 85 % (50-85); Total Cells Counted 100
[2021-11-16] MEDS: HYDROCORTISONE 100 MG VIAL IV SCH ×3 (06:45→21:58)
[2021-11-16 07:16] LABS: ABG Base Excess -3.8 MMOL/L (-2.5-2.5); ABG HCO3 21.3 MMOL/L (20-26); ABG Oxygen Saturation 99.8 % (95-100); ABG PCO2 34.9 MM HG (35-48); ABG TCO2 18.4 MMOL/L (23-27)
[2021-11-16] MEDS: MEROPENEM 500 MG in SODIUM CHLORIDE 0.9% 100 ML IV SCH ×2 (08:36→21:59)
[2021-11-16] MEDS: PANTOPRAZOLE 40 MG VIAL IV SCH (08:40)
[2021-11-16] MEDS: DESITIN 4OZ/NYSTATIN 15 GRAM MIXTURE PASTE TOP SCH ×2 (12:49→21:58)
[2021-11-16] MEDS: MIDAZOLAM 100 MG in SODIUM CHLORIDE 0.9% 80 ML IV PRN (13:30)
[2021-11-16] MEDS: MORPHINE 4 MG/1 ML VIAL IV PRN (13:57)
[2021-11-16] MEDS: FAT EMULSION 20% 250 ML IV SCH (15:00)
[2021-11-16] MEDS: [UNRECOGNIZED DRUG - OTHER] IV SCH (15:00)
[2021-11-16] MEDS: MULTIVITAMIN IV SCH (15:00)
[2021-11-16] MEDS: INSULIN REGULAR IV SCH (15:00)
[2021-11-16] MEDS: MICAFUNGIN 100 MG in SODIUM CHLORIDE 0.9% 100 ML IV SCH (15:00)
[2021-11-16] MEDS: INSULIN GLARGINE 100 UNIT/ML SUBCUT SCH (21:59)
[2021-11-17] MEDS: MORPHINE 4 MG/1 ML VIAL IV PRN ×2 (00:17→15:20)
[2021-11-17] MEDS: INSULIN LISPRO 100 UNIT/ML SUBCUT SCH ×4 (00:35→19:22)
[2021-11-17 03:32] LABS: ABG Base Excess -4.7 MMOL/L (-2.5-2.5); ABG HCO3 20.5 MMOL/L (20-26); ABG Oxygen Saturation 99.8 % (95-100); ABG PCO2 32.6 MM HG (35-48); ABG PH 7.388 (7.35-7.45); ABG TCO2 18.5 MMOL/L (23-27)
[2021-11-17 04:10] LABS: Hematocrit 21.9 VOL% (35.7-47.0); Hemoglobin 7.5 GM/DL (12.0-16.0); Immature Granulocytes % 8.1 %; Immature Granulocytes Absolute 0.57 #; Lymphocytes # 0.4 10*3/uL (1.4-4.0); Lymphocytes % 5.8 % (21.3-54.2); Mean Corpuscular HGB Conc 34.2 GM/DL (32-36); Mean Corpuscular Volume 88.7 FL (87-102); Mean Platelet Volume 13.2 FL (9.6-12.0); Monocytes % 7.3 % (1.7-12.7); Neutrophils % 78.8 % (38.7-73.9); Platelet Count 80 T/CUMM (130-400); Red Blood Count 2.47 MC/CUMM (3.8-5.5); Red Cell Distribution Width 15.5 % (9.3-17.3)
[2021-11-17 04:26] LABS: Albumin 1.7 G/DL (3.4-5.0); Bilirubin,Total 4.3 MG/DL (0.20-1.00); Calcium 8.5 MG/DL (8.5-10.1); Osmolality,Calculated 292.8 MOS/KG (273-304); Potassium 3.8 MMOL/L (3.5-5.1); Total Protein 4.8 G/DL (6.4-8.2)
[2021-11-17 04:31] LABS: Band Neutrophils 4 % (0-10); Hypochromia 1+; Lymphocytes 3 % (20-55); Microcytosis 1+; Platelet Estimate Decreased; Segmented Neutrophils 84 % (50-85); Total Cells Counted 100
[2021-11-17] MEDS: HYDROCORTISONE 100 MG VIAL IV SCH ×3 (06:36→21:15)
[2021-11-17] MEDS: DOPamine 800 MG/250 ML PREMIX IV PRN (07:30)
[2021-11-17] MEDS: MEROPENEM 500 MG in SODIUM CHLORIDE 0.9% 100 ML IV SCH ×2 (09:11→21:15)
[2021-11-17] MEDS: PANTOPRAZOLE 40 MG VIAL IV SCH (09:12)
[2021-11-17] MEDS: DESITIN 4OZ/NYSTATIN 15 GRAM MIXTURE PASTE TOP SCH ×2 (09:12→21:15)
[2021-11-17] MEDS: FAT EMULSION 20% 250 ML IV SCH (14:00)
[2021-11-17] MEDS: INSULIN REGULAR IV SCH (14:38)
[2021-11-17] MEDS: [UNRECOGNIZED DRUG - OTHER] IV SCH (14:38)
[2021-11-17] MEDS: MULTIVITAMIN IV SCH (14:38)
[2021-11-17] MEDS: MICAFUNGIN 100 MG in SODIUM CHLORIDE 0.9% 100 ML IV SCH (14:42)
[2021-11-17] MEDS: INSULIN GLARGINE 100 UNIT/ML SUBCUT SCH (21:15)
[2021-11-18] MEDS: INSULIN LISPRO 100 UNIT/ML SUBCUT SCH ×4 (00:28→18:08)
[2021-11-18 04:48] LABS: ABG Base Excess -1.3 MMOL/L (-2.5-2.5); ABG HCO3 23.4 MMOL/L (20-26); ABG Oxygen Saturation 99.7 % (95-100); ABG PCO2 33.9 MM HG (35-48); ABG PH 7.433 (7.35-7.45); ABG TCO2 21.4 MMOL/L (23-27)
[2021-11-18] MEDS: MIDAZOLAM 100 MG in SODIUM CHLORIDE 0.9% 80 ML IV PRN (05:37)
[2021-11-18 06:54] LABS: Hematocrit 20.2 VOL% (35.7-47.0); Hemoglobin 6.9 GM/DL (12.0-16.0); Immature Granulocytes Absolute 0.78 #; Lymphocytes # 0.3 10*3/uL (1.4-4.0); Lymphocytes % 4.8 % (21.3-54.2); Mean Corpuscular HGB Conc 34.2 GM/DL (32-36); Mean Corpuscular Volume 87.8 FL (87-102); Mean Platelet Volume 12.9 FL (9.6-12.0); Monocytes % 10.1 % (1.7-12.7); Neutrophils % 74.1 % (38.7-73.9); Platelet Count 69 T/CUMM (130-400); Red Cell Distribution Width 15.7 % (9.3-17.3); White Blood Count 7.1 T/CUMM (4-12)
[2021-11-18] MEDS: HYDROCORTISONE 100 MG VIAL IV SCH ×3 (06:59→21:01)
[2021-11-18 07:19] LABS: Band Neutrophils 2 % (0-10); Hypochromia 1+; Lymphocytes 8 % (20-55); Microcytosis 1+; Platelet Estimate Decreased; Segmented Neutrophils 80 % (50-85); Total Cells Counted 100
[2021-11-18 07:48] LABS: Osmolality,Calculated 289.4 MOS/KG (273-304)
[2021-11-18] MEDS ORDERED: SODIUM CHLORIDE 0.9% 1,000 ML IV PRN (08:19)
[2021-11-18] MEDS: MEROPENEM 500 MG in SODIUM CHLORIDE 0.9% 100 ML IV SCH ×2 (09:25→20:50)
[2021-11-18] MEDS: PANTOPRAZOLE 40 MG VIAL IV SCH (09:25)
[2021-11-18] MEDS: fentaNYL INJ 1,250 MCG in SODIUM CHLORIDE 0.9% 225 ML IV PRN (09:30)
[2021-11-18] MEDS: DESITIN 4OZ/NYSTATIN 15 GRAM MIXTURE PASTE TOP SCH ×2 (10:00→21:13)
[2021-11-18] MEDS: INSULIN REGULAR IV SCH ×2 (11:01→12:30)
[2021-11-18] MEDS: [UNRECOGNIZED DRUG - OTHER] IV SCH (11:01)
[2021-11-18] MEDS: MULTIVITAMIN IV SCH (11:01)
[2021-11-18] MEDS: AMINO ACIDS 10% IV SCH (12:30)
[2021-11-18] MEDS: DEXTROSE 70% IV SCH (12:30)
[2021-11-18] MEDS ORDERED: VANCOMYCIN INJ 1,500 MG in SODIUM CHLORIDE 0.9% 500 ML IV PRN (12:46)
[2021-11-18] MEDS: FAT EMULSION 20% 250 ML IV SCH (14:30)
[2021-11-18] MEDS: MICAFUNGIN 100 MG in SODIUM CHLORIDE 0.9% 100 ML IV SCH (14:30)
[2021-11-18] MEDS ORDERED: VANCOMYCIN INJ 2,500 MG in SODIUM CHLORIDE 0.9% 500 ML IV ONE (15:00)
[2021-11-18 16:17] LABS: Hemoglobin 8.5 GM/DL (12.0-16.0)
[2021-11-18] MEDS: INSULIN GLARGINE 100 UNIT/ML SUBCUT SCH (20:50)
[2021-11-19] MEDS: DOPamine 800 MG/250 ML PREMIX IV PRN
[2021-11-19] MEDS: INSULIN LISPRO 100 UNIT/ML SUBCUT SCH ×4 (00:50→20:22)
[2021-11-19 04:47] LABS: Basophils % 0.1 % (0.0-0.8); Hematocrit 26.1 VOL% (35.7-47.0); Immature Granulocytes % 13.1 %; Immature Granulocytes Absolute 1.05 #; Lymphocytes # 0.5 10*3/uL (1.4-4.0); Lymphocytes % 6.6 % (21.3-54.2); Mean Corpuscular HGB Conc 34.5 GM/DL (32-36); Mean Corpuscular Volume 86.7 FL (87-102); Mean Platelet Volume 12.6 FL (9.6-12.0); Monocytes % 7.5 % (1.7-12.7); Neutrophils % 72.7 % (38.7-73.9); Platelet Count 81 T/CUMM (130-400); Red Blood Count 3.01 MC/CUMM (3.8-5.5); Red Cell Distribution Width 15.4 % (9.3-17.3)
[2021-11-19 04:49] LABS: ABG Base Excess -3.9 MMOL/L (-2.5-2.5); ABG HCO3 19.7 MMOL/L (20-26); ABG Oxygen Saturation 98.9 % (95-100); ABG PCO2 30.1 MM HG (35-48); ABG PH 7.433 (7.35-7.45); ABG PO2 254.9 MM HG (80-95); ABG TCO2 20.6 MMOL/L (23-27)
[2021-11-19 05:14] LABS: Albumin 1.6 G/DL (3.4-5.0); Band Neutrophils 3 % (0-10); Bilirubin,Total 2.8 MG/DL (0.20-1.00); Calcium 8.1 MG/DL (8.5-10.1); Hypochromia 1+; Lymphocytes 6 % (20-55); Microcytosis 1+; Osmolality,Calculated 296.8 MOS/KG (273-304); Platelet Estimate Decreased; Potassium 4.2 MMOL/L (3.5-5.1); Segmented Neutrophils 87 % (50-85); Total Cells Counted 100; Total Protein 4.8 G/DL (6.4-8.2)
[2021-11-19] MEDS: HYDROCORTISONE 100 MG VIAL IV SCH ×3 (06:40→21:54)
[2021-11-19] MEDS: MORPHINE 4 MG/1 ML VIAL IV PRN (09:00)
[2021-11-19] MEDS: AMINO ACIDS 10% IV SCH (09:30)
[2021-11-19] MEDS: MIDAZOLAM 100 MG in SODIUM CHLORIDE 0.9% 80 ML IV PRN (09:30)
[2021-11-19] MEDS: INSULIN REGULAR IV SCH (09:30)
[2021-11-19] MEDS: DEXTROSE 70% IV SCH (09:30)
[2021-11-19] MEDS: DESITIN 4OZ/NYSTATIN 15 GRAM MIXTURE PASTE TOP SCH ×2 (09:39→20:23)
[2021-11-19] MEDS: MEROPENEM 500 MG in SODIUM CHLORIDE 0.9% 100 ML IV SCH ×2 (09:39→20:23)
[2021-11-19] MEDS: PANTOPRAZOLE 40 MG VIAL IV SCH (09:39)
[2021-11-19] MEDS ORDERED: VANCOMYCIN INJ 750 MG in SODIUM CHLORIDE 0.9% 250 ML IV PRN (14:00)
[2021-11-19] MEDS: MICAFUNGIN 100 MG in SODIUM CHLORIDE 0.9% 100 ML IV SCH (15:30)
[2021-11-19] MEDS: FAT EMULSION 20% 250 ML IV SCH (15:30)
[2021-11-19 16:47] LABS: Osmolality,Calculated 285.4 MOS/KG (273-304); Potassium 3.7 MMOL/L (3.5-5.1)
[2021-11-19] MEDS ORDERED: VANCOMYCIN INJ 750 MG in SODIUM CHLORIDE 0.9% 250 ML IV ONE (17:00)
[2021-11-19] MEDS: PHENYLEPHRINE DRIP 40 MG/250 ML PREMIX IV PRN (18:00)
[2021-11-19 18:30] LABS: ABG HCO3 23.6 MMOL/L (20-26); ABG Oxygen Saturation 99.6 % (95-100); ABG PCO2 33.5 MM HG (35-48); ABG PH 7.439 (7.35-7.45); ABG TCO2 20.9 MMOL/L (23-27)
[2021-11-19] MEDS: INSULIN GLARGINE 100 UNIT/ML SUBCUT SCH (20:23)
[2021-11-20] MEDS: INSULIN LISPRO 100 UNIT/ML SUBCUT SCH ×4 (00:05→18:30)
[2021-11-20] MEDS: MIDAZOLAM 100 MG in SODIUM CHLORIDE 0.9% 80 ML IV PRN (03:39)
[2021-11-20] MEDS: fentaNYL INJ 1,250 MCG in SODIUM CHLORIDE 0.9% 225 ML IV PRN ×2 (03:39→23:19)
[2021-11-20 04:35] LABS: ABG Base Excess -2.5 MMOL/L (-2.5-2.5); ABG HCO3 22.3 MMOL/L (20-26); ABG Oxygen Saturation 99.5 % (95-100); ABG PCO2 34.1 MM HG (35-48); ABG PH 7.407 (7.35-7.45)
[2021-11-20] MEDS: AMINO ACIDS 10% IV SCH (04:49)
[2021-11-20] MEDS: INSULIN REGULAR IV SCH (04:49)
[2021-11-20] MEDS: DEXTROSE 70% IV SCH (04:49)
[2021-11-20 05:04] LABS: Albumin 1.6 G/DL (3.4-5.0); Bilirubin,Total 2.5 MG/DL (0.20-1.00); Calcium 7.6 MG/DL (8.5-10.1); Osmolality,Calculated 296.2 MOS/KG (273-304); Potassium 3.8 MMOL/L (3.5-5.1); Total Protein 4.7 G/DL (6.4-8.2)
[2021-11-20 05:12] LABS: Basophils % 0.1 % (0.0-0.8); Hematocrit 25.5 VOL% (35.7-47.0); Hemoglobin 8.6 GM/DL (12.0-16.0); Immature Granulocytes % 11.5 %; Immature Granulocytes Absolute 1.65 #; Lymphocytes # 0.7 10*3/uL (1.4-4.0); Lymphocytes % 4.7 % (21.3-54.2); Mean Corpuscular HGB Conc 33.7 GM/DL (32-36); Mean Corpuscular Volume 87.9 FL (87-102); Monocytes % 6.4 % (1.7-12.7); NRBC # 0.02 10*3/uL; Neutrophils % 77.3 % (38.7-73.9); Platelet Count 55 T/CUMM (130-400); Red Cell Distribution Width 15.5 % (9.3-17.3); White Blood Count 14.4 T/CUMM (4-12)
[2021-11-20 06:08] LABS: Band Neutrophils 4 % (0-10); Hypochromia 1+; Lymphocytes 12 % (20-55); Myelocytes 1 %; Platelet Estimate Decreased; Segmented Neutrophils 78 % (50-85); Total Cells Counted 100
[2021-11-20] MEDS: HYDROCORTISONE 100 MG VIAL IV SCH ×3 (06:53→21:43)
[2021-11-20] MEDS: MEROPENEM 500 MG in SODIUM CHLORIDE 0.9% 100 ML IV SCH ×2 (09:18→20:08)
[2021-11-20] MEDS: PANTOPRAZOLE 40 MG VIAL IV SCH (09:18)
[2021-11-20] MEDS ORDERED: PHENYLEPHRINE DRIP 40 MG/250 ML PREMIX IV ONE (10:40)
[2021-11-20] MEDS: DESITIN 4OZ/NYSTATIN 15 GRAM MIXTURE PASTE TOP SCH ×2 (12:45→20:09)
[2021-11-20] MEDS: PHENYLEPHRINE DRIP 40 MG/250 ML PREMIX IV PRN (13:10)
[2021-11-20] MEDS: FAT EMULSION 20% 250 ML IV SCH (17:23)
[2021-11-20] MEDS: MICAFUNGIN 100 MG in SODIUM CHLORIDE 0.9% 100 ML IV SCH (17:23)
[2021-11-20] MEDS: INSULIN GLARGINE 100 UNIT/ML SUBCUT SCH (20:07)
[2021-11-21] MEDS: INSULIN LISPRO 100 UNIT/ML SUBCUT SCH ×4 (00:48→18:15)
[2021-11-21] MEDS: INSULIN REGULAR IV SCH ×2 (00:48→20:17)
[2021-11-21] MEDS: DEXTROSE 70% IV SCH ×2 (00:48→20:17)
[2021-11-21] MEDS: AMINO ACIDS 10% IV SCH ×2 (00:48→20:17)
[2021-11-21] MEDS: MIDAZOLAM 100 MG in SODIUM CHLORIDE 0.9% 80 ML IV PRN (04:01)
[2021-11-21 05:03] LABS: ABG Base Excess -5.7 MMOL/L (-2.5-2.5); ABG HCO3 19.7 MMOL/L (20-26); ABG Oxygen Saturation 99.6 % (95-100); ABG PCO2 32.6 MM HG (35-48); ABG TCO2 17.3 MMOL/L (23-27)
[2021-11-21 05:31] LABS: Basophils % 0.1 % (0.0-0.8); Hematocrit 25.4 VOL% (35.7-47.0); Hemoglobin 8.2 GM/DL (12.0-16.0); Immature Granulocytes % 9.7 %; Immature Granulocytes Absolute 1.38 #; Lymphocytes # 0.8 10*3/uL (1.4-4.0); Lymphocytes % 5.6 % (21.3-54.2); Mean Corpuscular HGB Conc 32.3 GM/DL (32-36); Mean Corpuscular Volume 90.1 FL (87-102); Mean Platelet Volume 12.3 FL (9.6-12.0); Monocytes % 4.6 % (1.7-12.7); Red Blood Count 2.82 MC/CUMM (3.8-5.5); Red Cell Distribution Width 15.7 % (9.3-17.3); White Blood Count 14.2 T/CUMM (4-12)
[2021-11-21 05:32] LABS: Platelet Count 67 T/CUMM (130-400)
[2021-11-21] MEDS: HYDROCORTISONE 100 MG VIAL IV SCH ×3 (05:40→22:08)
[2021-11-21 05:41] LABS: Albumin 1.6 G/DL (3.4-5.0); Bilirubin,Total 2.2 MG/DL (0.20-1.00); Calcium 7.5 MG/DL (8.5-10.1); Osmolality,Calculated 298.7 MOS/KG (273-304); Total Protein 4.5 G/DL (6.4-8.2)
[2021-11-21 06:01] LABS: Band Neutrophils 1 % (0-10); Hypochromia 1+; Lymphocytes 7 % (20-55); Microcytosis 1+; Nucleated Red Blood Cells 1 (0-5); Platelet Estimate Decreased; Segmented Neutrophils 88 % (50-85); Total Cells Counted 100
[2021-11-21] MEDS: PHENYLEPHRINE DRIP 40 MG/250 ML PREMIX IV PRN (06:34)
[2021-11-21] MEDS: MEROPENEM 500 MG in SODIUM CHLORIDE 0.9% 100 ML IV SCH ×2 (09:52→20:17)
[2021-11-21] MEDS: PANTOPRAZOLE 40 MG VIAL IV SCH (09:52)
[2021-11-21] MEDS: DESITIN 4OZ/NYSTATIN 15 GRAM MIXTURE PASTE TOP SCH ×2 (09:53→20:47)
[2021-11-21] MEDS: fentaNYL INJ 1,250 MCG in SODIUM CHLORIDE 0.9% 225 ML IV PRN (14:56)
[2021-11-21] MEDS: MICAFUNGIN 100 MG in SODIUM CHLORIDE 0.9% 100 ML IV SCH (15:20)
[2021-11-21] MEDS: FAT EMULSION 20% 250 ML IV SCH (15:21)
[2021-11-21] MEDS: INSULIN GLARGINE 100 UNIT/ML SUBCUT SCH (20:17)
[2021-11-22] MEDS: INSULIN LISPRO 100 UNIT/ML SUBCUT SCH ×4 (00:07→18:27)
[2021-11-22 04:32] LABS: ABG HCO3 18.7 MMOL/L (20-26); ABG Oxygen Saturation 99.4 % (95-100); ABG PCO2 28.6 MM HG (35-48); ABG PH 7.387 (7.35-7.45); ABG TCO2 16.1 MMOL/L (23-27)
[2021-11-22 04:56] LABS: Albumin 1.4 G/DL (3.4-5.0); Calcium 7.6 MG/DL (8.5-10.1); Osmolality,Calculated 304.1 MOS/KG (273-304); Potassium 4.1 MMOL/L (3.5-5.1); Total Protein 4.2 G/DL (6.4-8.2)
[2021-11-22 04:58] LABS: Basophils % 0.1 % (0.0-0.8); Hematocrit 23.9 VOL% (35.7-47.0); Hemoglobin 7.9 GM/DL (12.0-16.0); Immature Granulocytes % 7.6 %; Immature Granulocytes Absolute 1.04 #; Lymphocytes # 0.8 10*3/uL (1.4-4.0); Lymphocytes % 5.6 % (21.3-54.2); Mean Corpuscular HGB Conc 33.1 GM/DL (32-36); Mean Corpuscular Volume 89.2 FL (87-102); Mean Platelet Volume 13.5 FL (9.6-12.0); Monocytes % 2.9 % (1.7-12.7); NRBC # 0.02 10*3/uL; Neutrophils % 83.8 % (38.7-73.9); Platelet Count 72 T/CUMM (130-400); Red Blood Count 2.68 MC/CUMM (3.8-5.5); Red Cell Distribution Width 15.3 % (9.3-17.3); White Blood Count 13.6 T/CUMM (4-12)
[2021-11-22 05:04] LABS: Band Neutrophils 2 % (0-10); Hypochromia 1+; Lymphocytes 5 % (20-55); Microcytosis 1+; Nucleated Red Blood Cells 1 (0-5); Platelet Estimate Decreased; Segmented Neutrophils 90 % (50-85); Total Cells Counted 100
[2021-11-22] MEDS: fentaNYL INJ 1,250 MCG in SODIUM CHLORIDE 0.9% 225 ML IV PRN ×2 (05:07→18:54)
[2021-11-22] MEDS: HYDROCORTISONE 100 MG VIAL IV SCH ×3 (06:36→21:17)
[2021-11-22] MEDS: PANTOPRAZOLE 40 MG VIAL IV SCH (09:28)
[2021-11-22] MEDS: MEROPENEM 500 MG in SODIUM CHLORIDE 0.9% 100 ML IV SCH ×2 (09:29→21:18)
[2021-11-22] MEDS: DESITIN 4OZ/NYSTATIN 15 GRAM MIXTURE PASTE TOP SCH ×2 (09:29→21:19)
[2021-11-22] MEDS: PHENYLEPHRINE DRIP 40 MG/250 ML PREMIX IV PRN (10:12)
[2021-11-22] MEDS: MICAFUNGIN 100 MG in SODIUM CHLORIDE 0.9% 100 ML IV SCH (14:48)
[2021-11-22] MEDS: FAT EMULSION 20% 250 ML IV SCH (14:49)
[2021-11-22] MEDS: INSULIN REGULAR IV SCH (16:41)
[2021-11-22] MEDS: DEXTROSE 70% IV SCH (16:41)
[2021-11-22] MEDS: AMINO ACIDS 10% IV SCH (16:41)
[2021-11-22] MEDS ORDERED: VANCOMYCIN INJ 750 MG in SODIUM CHLORIDE 0.9% 250 ML IV ONE (21:00)
[2021-11-22] MEDS: INSULIN GLARGINE 100 UNIT/ML SUBCUT SCH (21:17)
[2021-11-23] MEDS: INSULIN LISPRO 100 UNIT/ML SUBCUT SCH ×4 (00:25→18:41)
[2021-11-23 04:46] LABS: Basophils % 0.1 % (0.0-0.8); Hemoglobin 8.4 GM/DL (12.0-16.0); Immature Granulocytes % 5.6 %; Lymphocytes # 0.7 10*3/uL (1.4-4.0); Lymphocytes % 3.5 % (21.3-54.2); Mean Corpuscular HGB Conc 32.3 GM/DL (32-36); Mean Corpuscular Volume 90.3 FL (87-102); Mean Platelet Volume 13.7 FL (9.6-12.0); Monocytes % 3.5 % (1.7-12.7); Neutrophils % 87.3 % (38.7-73.9); Platelet Count 74 T/CUMM (130-400); Red Blood Count 2.88 MC/CUMM (3.8-5.5); Red Cell Distribution Width 15.8 % (9.3-17.3); White Blood Count 19.7 T/CUMM (4-12)
[2021-11-23 05:02] LABS: Albumin 1.6 G/DL (3.4-5.0); Bilirubin,Total 2.7 MG/DL (0.20-1.00); Calcium 7.3 MG/DL (8.5-10.1); Osmolality,Calculated 300.7 MOS/KG (273-304); Total Protein 4.4 G/DL (6.4-8.2)
[2021-11-23 05:11] LABS: Lymphocytes 2 % (20-55); Segmented Neutrophils 94 % (50-85); Total Cells Counted 100
[2021-11-23 05:12] LABS: Hypochromia 1+; Microcytosis 1+; Ovalocytes Slight; Platelet Estimate Decreased
[2021-11-23] MEDS: HYDROCORTISONE 100 MG VIAL IV SCH ×3 (05:38→22:03)
[2021-11-23] MEDS: fentaNYL INJ 1,250 MCG in SODIUM CHLORIDE 0.9% 225 ML IV PRN ×2 (08:05→22:54)
[2021-11-23] MEDS: PHENYLEPHRINE DRIP 40 MG/250 ML PREMIX IV PRN (08:10)
[2021-11-23] MEDS: MIDAZOLAM 100 MG in SODIUM CHLORIDE 0.9% 80 ML IV PRN (09:25)
[2021-11-23] MEDS: PANTOPRAZOLE 40 MG VIAL IV SCH (09:46)
[2021-11-23] MEDS: DESITIN 4OZ/NYSTATIN 15 GRAM MIXTURE PASTE TOP SCH ×2 (09:47→22:02)
[2021-11-23] MEDS: MEROPENEM 500 MG in SODIUM CHLORIDE 0.9% 100 ML IV SCH ×2 (09:47→22:02)
[2021-11-23] MEDS: INSULIN REGULAR IV SCH (13:09)
[2021-11-23] MEDS: DEXTROSE 70% IV SCH (13:09)
[2021-11-23] MEDS: AMINO ACIDS 10% IV SCH (13:09)
[2021-11-23] MEDS: FAT EMULSION 20% 250 ML IV SCH (14:49)
[2021-11-23] MEDS: MICAFUNGIN 100 MG in SODIUM CHLORIDE 0.9% 100 ML IV SCH (14:49)
[2021-11-23 19:51] LABS: HIT Interpretation Negative (Negative)
[2021-11-23] MEDS: INSULIN GLARGINE 100 UNIT/ML SUBCUT SCH (22:02)
[2021-11-24] MEDS: PHENYLEPHRINE DRIP 40 MG/250 ML PREMIX IV PRN ×2 (02:57→18:33)
[2021-11-24 03:25] LABS: ABG HCO3 17.9 MMOL/L (20-26); ABG Oxygen Saturation 99.5 % (95-100); ABG PCO2 28.4 MM HG (35-48); ABG PH 7.368 (7.35-7.45); ABG TCO2 15.1 MMOL/L (23-27)
[2021-11-24 03:33] LABS: Basophils % 0.2 % (0.0-0.8); Hematocrit 26.1 VOL% (35.7-47.0); Hemoglobin 8.5 GM/DL (12.0-16.0); Immature Granulocytes % 5.2 %; Lymphocytes # 0.7 10*3/uL (1.4-4.0); Lymphocytes % 3.8 % (21.3-54.2); Mean Corpuscular HGB Conc 32.6 GM/DL (32-36); Mean Corpuscular Volume 90.3 FL (87-102); Mean Platelet Volume 13.7 FL (9.6-12.0); Monocytes % 3.1 % (1.7-12.7); Neutrophils % 87.7 % (38.7-73.9); Platelet Count 80 T/CUMM (130-400); Red Blood Count 2.89 MC/CUMM (3.8-5.5); Red Cell Distribution Width 15.7 % (9.3-17.3); White Blood Count 17.2 T/CUMM (4-12)
[2021-11-24 03:46] LABS: Albumin 1.6 G/DL (3.4-5.0); Bilirubin,Total 2.6 MG/DL (0.20-1.00); Calcium 7.6 MG/DL (8.5-10.1); Osmolality,Calculated 306.1 MOS/KG (273-304); Potassium 4.1 MMOL/L (3.5-5.1); Total Protein 4.4 G/DL (6.4-8.2)
[2021-11-24 04:32] LABS: Lymphocytes 6 % (20-55); Segmented Neutrophils 91 % (50-85); Total Cells Counted 100
[2021-11-24 04:33] LABS: Hypochromia 1+; Microcytosis 1+; Platelet Estimate Decreased
[2021-11-24] MEDS: HYDROCORTISONE 100 MG VIAL IV SCH ×3 (05:58→21:12)
[2021-11-24] MEDS: INSULIN LISPRO 100 UNIT/ML SUBCUT SCH ×4 (05:58→18:45)
[2021-11-24] MEDS: AMINO ACIDS 10% IV SCH (09:02)
[2021-11-24] MEDS: DEXTROSE 70% IV SCH (09:02)
[2021-11-24] MEDS: INSULIN REGULAR IV SCH (09:02)
[2021-11-24] MEDS: DESITIN 4OZ/NYSTATIN 15 GRAM MIXTURE PASTE TOP SCH ×2 (09:03→21:11)
[2021-11-24] MEDS: MEROPENEM 500 MG in SODIUM CHLORIDE 0.9% 100 ML IV SCH ×2 (09:03→21:11)
[2021-11-24] MEDS: PANTOPRAZOLE 40 MG VIAL IV SCH (09:03)
[2021-11-24] MEDS ORDERED: VANCOMYCIN INJ 500 MG in SODIUM CHLORIDE 0.9% 100 ML IV PRN (09:37)
[2021-11-24] MEDS: SODIUM BICARBONATE 650 MG TABLET PO SCH ×2 (16:01→21:11)
[2021-11-24] MEDS: MICAFUNGIN 100 MG in SODIUM CHLORIDE 0.9% 100 ML IV SCH (16:01)
[2021-11-24] MEDS: FAT EMULSION 20% 250 ML IV SCH (16:02)
[2021-11-24] MEDS ORDERED: VANCOMYCIN INJ 500 MG in SODIUM CHLORIDE 0.9% 100 ML IV ONE (17:00)
[2021-11-24] MEDS: INSULIN GLARGINE 100 UNIT/ML SUBCUT SCH (21:25)
[2021-11-25] MEDS: INSULIN LISPRO 100 UNIT/ML SUBCUT SCH ×4 (00:38→17:01)
[2021-11-25] MEDS: PHENYLEPHRINE DRIP 40 MG/250 ML PREMIX IV PRN (00:46)
[2021-11-25 05:24] LABS: ABG Base Excess -2.5 MMOL/L (-2.5-2.5); ABG HCO3 22.3 MMOL/L (20-26); ABG PH 7.494 (7.35-7.45); ABG TCO2 18.6 MMOL/L (23-27)
[2021-11-25] MEDS: DEXTROSE 70% IV SCH (05:31)
[2021-11-25] MEDS: AMINO ACIDS 10% IV SCH (05:31)
[2021-11-25] MEDS: INSULIN REGULAR IV SCH (05:31)
[2021-11-25 05:45] LABS: Basophils % 0.1 % (0.0-0.8); Eosinophils % 0.1 % (0.00-10.9); Hematocrit 23.7 VOL% (35.7-47.0); Immature Granulocytes % 4.3 %; Lymphocytes # 0.7 10*3/uL (1.4-4.0); Lymphocytes % 5.1 % (21.3-54.2); Mean Corpuscular HGB Conc 33.8 GM/DL (32-36); Mean Corpuscular Volume 87.8 FL (87-102); Mean Platelet Volume 13.1 FL (9.6-12.0); Monocytes % 4.2 % (1.7-12.7); NRBC # 0.03 10*3/uL; Neutrophils % 86.2 % (38.7-73.9); Platelet Count 71 T/CUMM (130-400); Red Cell Distribution Width 15.5 % (9.3-17.3); White Blood Count 14.1 T/CUMM (4-12)
[2021-11-25 05:58] LABS: Albumin 1.5 G/DL (3.4-5.0); Bilirubin,Total 3.5 MG/DL (0.20-1.00); Calcium 7.3 MG/DL (8.5-10.1); Osmolality,Calculated 296.5 MOS/KG (273-304); Potassium 3.5 MMOL/L (3.5-5.1); Total Protein 4.2 G/DL (6.4-8.2)
[2021-11-25 06:15] LABS: Hypochromia 1+; Lymphocytes 4 % (20-55); Microcytosis 1+; Platelet Estimate Decreased; Segmented Neutrophils 94 % (50-85); Total Cells Counted 100
[2021-11-25] MEDS: HYDROCORTISONE 100 MG VIAL IV SCH ×3 (06:33→21:03)
[2021-11-25] MEDS: PANTOPRAZOLE 40 MG VIAL IV SCH (08:05)
[2021-11-25] MEDS: MEROPENEM 500 MG in SODIUM CHLORIDE 0.9% 100 ML IV SCH ×2 (08:08→21:02)
[2021-11-25] MEDS: SODIUM BICARBONATE 650 MG TABLET PO SCH ×2 (08:08→21:03)
[2021-11-25] MEDS: DESITIN 4OZ/NYSTATIN 15 GRAM MIXTURE PASTE TOP SCH ×2 (08:08→21:03)
[2021-11-25] MEDS: MICAFUNGIN 100 MG in SODIUM CHLORIDE 0.9% 100 ML IV SCH (15:00)
[2021-11-25] MEDS: FAT EMULSION 20% 250 ML IV SCH (15:00)
[2021-11-25] MEDS: INSULIN GLARGINE 100 UNIT/ML SUBCUT SCH (21:02)
[2021-11-26] MEDS: DEXTROSE 70% IV SCH (00:05)
[2021-11-26] MEDS: AMINO ACIDS 10% IV SCH (00:05)
[2021-11-26] MEDS: INSULIN LISPRO 100 UNIT/ML SUBCUT SCH ×4 (00:05→17:59)
[2021-11-26] MEDS: INSULIN REGULAR IV SCH (00:05)
[2021-11-26] MEDS: HYDROCORTISONE 100 MG VIAL IV SCH ×2 (06:38→13:28)
[2021-11-26 07:59] LABS: Basophils % 0.1 % (0.0-0.8); Eosinophils % 0.1 % (0.00-10.9); Hematocrit 22.3 VOL% (35.7-47.0); Hemoglobin 7.4 GM/DL (12.0-16.0); Immature Granulocytes % 2.8 %; Immature Granulocytes Absolute 0.31 #; Lymphocytes # 0.8 10*3/uL (1.4-4.0); Lymphocytes % 7.3 % (21.3-54.2); Mean Corpuscular HGB Conc 33.2 GM/DL (32-36); Mean Corpuscular Volume 89.2 FL (87-102); Mean Platelet Volume 14.5 FL (9.6-12.0); Monocytes % 5.3 % (1.7-12.7); Neutrophils % 84.4 % (38.7-73.9); Platelet Count 59 T/CUMM (130-400)
[2021-11-26 08:14] LABS: Calcium 7.4 MG/DL (8.5-10.1); Osmolality,Calculated 304.8 MOS/KG (273-304); Potassium 3.5 MMOL/L (3.5-5.1)
[2021-11-26 08:23] LABS: Anisocytosis 2+; Macrocytosis Slight; Platelet Estimate Decreased; Tear Drop Cells Few
[2021-11-26] MEDS: PANTOPRAZOLE 40 MG VIAL IV SCH (09:19)
[2021-11-26] MEDS: DESITIN 4OZ/NYSTATIN 15 GRAM MIXTURE PASTE TOP SCH (09:19)
[2021-11-26] MEDS: SODIUM BICARBONATE 650 MG TABLET PO SCH (09:19)
[2021-11-26] MEDS: MEROPENEM 500 MG in SODIUM CHLORIDE 0.9% 100 ML IV SCH (09:19)
[2021-11-26] MEDS: FAT EMULSION 20% 250 ML IV SCH (13:28)
[2021-11-26] MEDS: PHENYLEPHRINE DRIP 40 MG/250 ML PREMIX IV PRN (15:27)
[2021-11-26] MEDS: MORPHINE 4 MG/1 ML VIAL IV PRN (18:12)
[2021-11-27] MEDS: MORPHINE 4 MG/1 ML VIAL IV PRN ×3 (12:00→23:58)
[2021-11-28] MEDS: LORazepam 2 MG/1 ML VIAL IV PRN ×3 (00:42→22:53)
[2021-11-28] MEDS: MORPHINE 4 MG/1 ML VIAL IV PRN ×3 (12:50→22:53)
[2021-11-28 21:05] VITALS: BP 118/32
[2021-11-29] MEDS: MORPHINE 4 MG/1 ML VIAL IV PRN (03:39)
[2021-11-29] MEDS: LORazepam 2 MG/1 ML VIAL IV PRN (04:01)
== END 2021-11-29 08:20 | disposition expired | DRG 853 ==
LOC: EDBD → EDUNIT# → N.ED 01:32 → SUATTDRO 05:41 → N.EDINP 05:41 → N.CC 15:16 → N.TELEN 11-27 04:57
PROVIDERS: ADMIT Internal Medicine; ATTEND Internal Medicine